=== PATIENT | male | born 1970 | race Caucasian/White ===

== ENCOUNTER 2016-10-31 12:43 | Inpatient (IN) | payer MEDICARE, MEDICAID ==
[~2016-10-31] VITALS: Ht 177.8 cm; Wt 55.6 kg
[~2016-10-31 12:43] MED LIST: DIVA500T52 PO; HALO2 PO
[2016-10-31 17:50] VITALS: BP 107/70
[2016-10-31] MEDS ORDERED: INFLUENZA VIRUS VACCINE QVS 2016-17 (3YR+)/PF 60 MCG/0.5 ML SYRINGE IM ONE (18:15)
[2016-10-31] MEDS: DIVALPROEX SODIUM 500 MG ER TABLET PO SCH (20:04)
[2016-10-31] MEDS: QUEtiapine FUMARATE 200 MG TABLET PO SCH (20:04)
[2016-10-31] MEDS: ZOLPIDEM TARTRATE 10 MG TABLET PO PRN (20:04)
[2016-11-01 06:26] VITALS: BP 117/71
[2016-11-01 08:07] VITALS: BP 119/81
[2016-11-01] MEDS: SULFAMETHOX/TRIMETH DS 800-160 MG/TABLET PO SCH ×2 (08:13→16:31)
[2016-11-01] MEDS: OLANZapine 5 MG RAPDIS TABLET PO SCH (08:14)
[2016-11-01] MEDS: CEPHALEXIN MONOHYDRATE 500 MG CAPSULE PO SCH ×3 (08:16→16:31)
[2016-11-01 08:36] LABS: BASOPHILS # (AUTO) 0.05 K/uL (0.00-0.20); BASOPHILS % (AUTO) 0.5 % (0.0-2.0); EOSINOPHILS # (AUTO) 0.18 K/uL (0.00-0.70); EOSINOPHILS % (AUTO) 1.89 % (1.0-6.0); HEMATOCRIT 38.9 % (41-53); HEMOGLOBIN 12.4 g/dL (13.5-17.5); LYMPHOCYTES # (AUTO) 2.1 K/uL (1.0-4.8); LYMPHOCYTES % (AUTO) 22.5 % (22.0-44.0); MEAN CORPUSCULAR HEMOGLOBIN 26.3 pg (26.0-34.0); MEAN CORPUSCULAR HGB CONC 31.8 G/dL (31.0-37.0); MEAN CORPUSCULAR VOLUME 83 fL (80-100); MONOCYTES # (AUTO) 0.6 K/uL (0.1-1.0); MONOCYTES % (AUTO) 6.1 % (2.0-9.0); NEUTROPHILS # (AUTO) 6.4 K/uL (1.8-7.7); NEUTROPHILS % (AUTO) 69.1 % (40.0-70.0); PLATELET COUNT (AUTO) 292 K/uL (150-450); WHITE BLOOD COUNT (AUTO) 9.3 K/uL (4.5-11.0)
[2016-11-01 09:20] LABS: HEMOGLOBIN A1C 5.4 % (4.5-6.2)
[2016-11-01 09:38] LABS: ALANINE AMINOTRANSFERASE 18 U/L (12-78); ALBUMIN 2.8 g/dL (3.4-5.0); ANION GAP 9 mmol/L (8-16); ASPARTATE AMINOTRANSFERASE 23 U/L (15-37); BILIRUBIN,TOTAL 0.2 mg/dL (0.1-1.0); CALCIUM, TOTAL 8.5 mg/dL (8.8-10.5); CARBON DIOXIDE 29 mmol/L (22-29); CHLORIDE 103 mmol/L (98-107); CHOL/HDL RATIO 2.4 (4.2-7.3); CREATININE 0.87 mg/dL (0.60-1.30); GLOMERULAR FILTR. RATE CALC > 60 mL/min (>60); POTASSIUM 3.9 mmol/L (3.5-5.1); SODIUM SERUM 141 mmol/L (136-145); THYROID STIMULATING HORMONE 0.93 uIU/mL (0.36-3.74); TOTAL PROTEIN, SERUM 7.6 g/dL (6.4-8.2); UREA NITROGEN, BLOOD 18 mg/dL (7-18)
[2016-11-01] MEDS: LORazepam 2 MG TABLET PO PRN (11:12)
[2016-11-01] MEDS: QUEtiapine FUMARATE 100 MG TABLET PO PRN (16:31)
[2016-11-01 16:46] VITALS: BP 117/71
[2016-11-01] MEDS: DIVALPROEX SODIUM 500 MG ER TABLET PO SCH (20:24)
[2016-11-01] MEDS: QUEtiapine FUMARATE 200 MG TABLET PO SCH (20:24)
[2016-11-01 21:00] VITALS: BP 103/76
[2016-11-02 09:15] VITALS: BP 106/67
[2016-11-02] MEDS: OLANZapine 5 MG RAPDIS TABLET PO SCH (09:58)
[2016-11-02] MEDS: CEPHALEXIN MONOHYDRATE 500 MG CAPSULE PO SCH ×3 (09:58→17:00)
[2016-11-02] MEDS: SULFAMETHOX/TRIMETH DS 800-160 MG/TABLET PO SCH ×2 (09:58→17:00)
[2016-11-02 16:47] VITALS: BP 113/71
[2016-11-02] MEDS: LORazepam 2 MG TABLET PO PRN (18:08)
[2016-11-02] MEDS: DIVALPROEX SODIUM 500 MG ER TABLET PO SCH (22:13)
[2016-11-02] MEDS: ZOLPIDEM TARTRATE 10 MG TABLET PO PRN (22:13)
[2016-11-02] MEDS: QUEtiapine FUMARATE 200 MG TABLET PO SCH (22:14)
[2016-11-03 08:00] VITALS: BP 109/84
[2016-11-03] MEDS: LORazepam 2 MG TABLET PO PRN ×3 (08:17→17:25)
[2016-11-03] MEDS: SULFAMETHOX/TRIMETH DS 800-160 MG/TABLET PO SCH ×2 (08:17→17:13)
[2016-11-03] MEDS: CEPHALEXIN MONOHYDRATE 500 MG CAPSULE PO SCH ×3 (08:17→17:13)
[2016-11-03] MEDS: OLANZapine 5 MG RAPDIS TABLET PO SCH (08:18)
[2016-11-03 16:00] VITALS: BP 118/65
[2016-11-03] MEDS: QUEtiapine FUMARATE 200 MG TABLET PO SCH (21:36)
[2016-11-03] MEDS: DIVALPROEX SODIUM 500 MG ER TABLET PO SCH (21:36)
[2016-11-04 08:03] VITALS: BP 124/74
[2016-11-04] MEDS: SULFAMETHOX/TRIMETH DS 800-160 MG/TABLET PO SCH ×2 (09:01→18:07)
[2016-11-04] MEDS: OLANZapine 5 MG RAPDIS TABLET PO SCH (09:01)
[2016-11-04] MEDS: CEPHALEXIN MONOHYDRATE 500 MG CAPSULE PO SCH ×3 (09:01→18:07)
[2016-11-04] MEDS: LORazepam 2 MG TABLET PO PRN ×2 (12:36→18:07)
[2016-11-04] MEDS: QUEtiapine FUMARATE 100 MG TABLET PO PRN (18:07)
[2016-11-04 19:44] VITALS: BP 128/86
[2016-11-04] MEDS: QUEtiapine FUMARATE 200 MG TABLET PO SCH (21:02)
[2016-11-04] MEDS: DIVALPROEX SODIUM 500 MG ER TABLET PO SCH (21:02)
[2016-11-05 08:10] VITALS: BP 121/76
[2016-11-05] MEDS: CEPHALEXIN MONOHYDRATE 500 MG CAPSULE PO SCH ×3 (08:48→16:20)
[2016-11-05] MEDS: SULFAMETHOX/TRIMETH DS 800-160 MG/TABLET PO SCH ×2 (08:48→16:19)
[2016-11-05] MEDS: OLANZapine 5 MG RAPDIS TABLET PO SCH (08:48)
[2016-11-05] MEDS: LORazepam 2 MG TABLET PO PRN (10:16)
[2016-11-05 17:16] VITALS: BP 111/74
[2016-11-05] MEDS: QUEtiapine FUMARATE 200 MG TABLET PO SCH (20:17)
[2016-11-05] MEDS: DIVALPROEX SODIUM 500 MG ER TABLET PO SCH (20:17)
[2016-11-05] MEDS: ZOLPIDEM TARTRATE 10 MG TABLET PO PRN (21:14)
[2016-11-06] MEDS: LORazepam 2 MG TABLET PO PRN (01:24)
[2016-11-06] MEDS: OLANZapine 5 MG RAPDIS TABLET PO SCH (08:01)
[2016-11-06] MEDS: CEPHALEXIN MONOHYDRATE 500 MG CAPSULE PO SCH ×2 (08:01→12:10)
[2016-11-06] MEDS: SULFAMETHOX/TRIMETH DS 800-160 MG/TABLET PO SCH (08:01)
[2016-11-06 08:07] VITALS: BP 127/70
[2016-11-06 12:23] LABS: BASOPHILS # (AUTO) 0.04 K/uL (0.00-0.20); BASOPHILS % (AUTO) 0.6 % (0.0-2.0); EOSINOPHILS # (AUTO) 0.12 K/uL (0.00-0.70); EOSINOPHILS % (AUTO) 1.98 % (1.0-6.0); HEMATOCRIT 39.1 % (41-53); HEMOGLOBIN 12.6 g/dL (13.5-17.5); LYMPHOCYTES % (AUTO) 33.9 % (22.0-44.0); MEAN CORPUSCULAR HEMOGLOBIN 26.6 pg (26.0-34.0); MEAN CORPUSCULAR HGB CONC 32.3 G/dL (31.0-37.0); MEAN CORPUSCULAR VOLUME 82 fL (80-100); MONOCYTES # (AUTO) 0.3 K/uL (0.1-1.0); MONOCYTES % (AUTO) 5.6 % (2.0-9.0); NEUTROPHILS # (AUTO) 3.4 K/uL (1.8-7.7); NEUTROPHILS % (AUTO) 57.9 % (40.0-70.0); PLATELET COUNT (AUTO) 305 K/uL (150-450); RED BLOOD CELL COUNT(AUTO) 4.76 MIL/uL (4.50-5.90); WHITE BLOOD COUNT (AUTO) 5.9 K/uL (4.5-11.0)
[2016-11-06] MEDS ORDERED: CEPH500 PO (12:28)
[2016-11-06] MEDS ORDERED: QUET200T PO (12:28)
[2016-11-06] MEDS ORDERED: BACTDSB PO (12:28)
[2016-11-06] MEDS ORDERED: OLAN5Z PO (12:28)
[2016-11-06 12:41] LABS: AMYLASE 45 U/L (25-115); VALPROIC ACID 22 mcg/mL (50-100)
== END 2016-11-06 14:15 | disposition home or self-care (01) | DRG 885 ==
LOC: B3A 17:18 → 3EC 11-01 20:30
PROVIDERS: ADMIT Psychiatry & Neurology Psychiatry; ATTEND Psychiatry & Neurology Psychiatry
DX: F20.0 Paranoid schizophrenia (principal); R45.851 Suicidal ideations; L03.116 Cellulitis of left lower limb; F32.9 Major depressive disorder, single episode, unspecified; D64.9 Anemia, unspecified; J30.9 Allergic rhinitis, unspecified; I10 Essential (primary) hypertension; B95.62 Methicillin resistant Staphylococcus aureus infection as the cause of diseases classified elsewhere; L65.9 Nonscarring hair loss, unspecified; F17.210 Nicotine dependence, cigarettes, uncomplicated; F12.90 Cannabis use, unspecified, uncomplicated; K59.00 Constipation, unspecified; N40.0 Benign prostatic hyperplasia without lower urinary tract symptoms; Z59.9 Problem related to housing and economic circumstances, unspecified; Z79.899 Other long term (current) drug therapy; Z88.8 Allergy status to other drugs, medicaments and biological substances; Z91.19 Patient's noncompliance with other medical treatment and regimen; Z72.89 Other problems related to lifestyle; Z81.8 Family history of other mental and behavioral disorders
CPT/HCPCS: 83036; 84439; 84443; 87070; 87081; 87147; 87205

== ENCOUNTER 2016-11-13 10:22 | Inpatient (IN) | payer MEDICARE, MEDICAID ==
[~2016-11-13] VITALS: Ht 177.8 cm; Wt 59.7 kg
[~2016-11-13 10:22] MED LIST changes: +BACTDSB PO; +CEPH500 PO; -HALO2 PO; +OLAN5Z PO; +QUET200T PO
[2016-11-13] MEDS ORDERED: ZOLPIDEM TARTRATE 10 MG TABLET PO PRN (13:30)
[2016-11-13] MEDS ORDERED: QUEtiapine FUMARATE 100 MG TABLET PO PRN (13:30)
[2016-11-13] MEDS ORDERED: DiphenhydrAMINE HCL 50 MG/ML VIAL IM ONE (16:15)
[2016-11-13] MEDS ORDERED: LORazepam 2 MG/ML VIAL IM ONE (16:15)
[2016-11-13 16:53] VITALS: BP 113/68
[2016-11-13] MEDS: QUEtiapine FUMARATE 200 MG TABLET PO SCH (20:56)
[2016-11-13] MEDS: DIVALPROEX SODIUM 500 MG ER TABLET PO SCH (20:56)
[2016-11-14 06:43] LABS: BASOPHILS % (AUTO) 0.6 % (0.0-2.0); HEMOGLOBIN 13.7 g/dL (13.5-17.5); LYMPHOCYTES # (AUTO) 2.9 K/uL (1.0-4.8); LYMPHOCYTES % (AUTO) 30.5 % (22.0-44.0); MEAN CORPUSCULAR HEMOGLOBIN 26.1 pg (26.0-34.0); MEAN CORPUSCULAR HGB CONC 31.2 G/dL (31.0-37.0); MEAN CORPUSCULAR VOLUME 84 fL (80-100); MONOCYTES # (AUTO) 0.6 K/uL (0.1-1.0); MONOCYTES % (AUTO) 6.9 % (2.0-9.0); NEUTROPHILS # (AUTO) 5.7 K/uL (1.8-7.7); PLATELET COUNT (AUTO) 283 K/uL (150-450); RED BLOOD CELL COUNT(AUTO) 5.26 MIL/uL (4.50-5.90); RED CELL DISTRIBUTION WIDTH 15.9 % (11.5-14.5); WHITE BLOOD COUNT (AUTO) 9.4 K/uL (4.5-11.0)
[2016-11-14 06:57] LABS: ALANINE AMINOTRANSFERASE 35 U/L (12-78); ALBUMIN 3.3 g/dL (3.4-5.0); ANION GAP 9 mmol/L (8-16); ASPARTATE AMINOTRANSFERASE 94 U/L (15-37); BILIRUBIN,TOTAL 0.4 mg/dL (0.1-1.0); CALCIUM, TOTAL 8.7 mg/dL (8.8-10.5); CARBON DIOXIDE 28 mmol/L (22-29); CHLORIDE 105 mmol/L (98-107); CREATININE 0.86 mg/dL (0.60-1.30); GLOMERULAR FILTR. RATE CALC > 60 mL/min (>60); SODIUM SERUM 142 mmol/L (136-145); TOTAL PROTEIN, SERUM 7.5 g/dL (6.4-8.2); UREA NITROGEN, BLOOD 15 mg/dL (7-18)
[2016-11-14] MEDS: OLANZapine 5 MG RAPDIS TABLET PO SCH (08:59)
[2016-11-14] MEDS: LORazepam 2 MG TABLET PO PRN ×2 (11:12→16:11)
[2016-11-14 16:15] VITALS: BP 127/74
[2016-11-14] MEDS: DIVALPROEX SODIUM 500 MG ER TABLET PO SCH (20:27)
[2016-11-14] MEDS: QUEtiapine FUMARATE 200 MG TABLET PO SCH (20:28)
[2016-11-15] MEDS: OLANZapine 5 MG RAPDIS TABLET PO SCH (08:32)
[2016-11-15] MEDS: PALIPERIDONE 6 MG ER TABLET PO SCH (08:32)
[2016-11-15] MEDS: LORazepam 2 MG TABLET PO PRN ×2 (13:37→19:30)
[2016-11-15 17:03] VITALS: BP 122/82
[2016-11-15] MEDS: DIVALPROEX SODIUM 500 MG ER TABLET PO SCH (20:24)
[2016-11-16] MEDS: PALIPERIDONE 6 MG ER TABLET PO SCH (08:48)
[2016-11-16] MEDS: OLANZapine 5 MG RAPDIS TABLET PO SCH (08:49)
[2016-11-16 08:52] VITALS: BP 110/86
[2016-11-16] MEDS ORDERED: BISACODYL 5 MG EC TABLET PO PRN (09:00)
[2016-11-16] MEDS: LORazepam 2 MG TABLET PO PRN ×2 (15:53→22:02)
[2016-11-16 16:00] VITALS: BP 107/75
[2016-11-16] MEDS: DIVALPROEX SODIUM 500 MG ER TABLET PO SCH (20:28)
[2016-11-17 08:27] VITALS: BP 119/74
[2016-11-17] MEDS: PALIPERIDONE 6 MG ER TABLET PO SCH (09:04)
[2016-11-17] MEDS: OLANZapine 5 MG RAPDIS TABLET PO SCH (09:04)
[2016-11-17] MEDS: LORazepam 2 MG TABLET PO PRN (15:52)
[2016-11-17 16:00] VITALS: BP 126/70
[2016-11-17] MEDS: DIVALPROEX SODIUM 500 MG ER TABLET PO SCH (20:30)
[2016-11-18 08:38] VITALS: BP 112/59
[2016-11-18] MEDS: OLANZapine 5 MG RAPDIS TABLET PO SCH (08:51)
[2016-11-18] MEDS: PALIPERIDONE 6 MG ER TABLET PO SCH (08:51)
[2016-11-18] MEDS ORDERED: PALI3 PO (11:43)
[2016-11-20] MEDS ORDERED: PALIPERIDONE 3 MG ER TABLET PO SCH (09:00)
== END 2016-11-18 13:40 | disposition left against medical advice (07) | DRG 885 ==
LOC: 3EC 16:14
PROVIDERS: ADMIT Psychiatry & Neurology Psychiatry; ATTEND Psychiatry & Neurology Psychiatry
DX: F20.0 Paranoid schizophrenia (principal); R45.851 Suicidal ideations; E46 Unspecified protein-calorie malnutrition; H54.41 Blindness, right eye, normal vision left eye; N40.0 Benign prostatic hyperplasia without lower urinary tract symptoms; R45.850 Homicidal ideations; J30.9 Allergic rhinitis, unspecified; D64.9 Anemia, unspecified; K59.00 Constipation, unspecified; G47.00 Insomnia, unspecified; F15.90 Other stimulant use, unspecified, uncomplicated; F12.90 Cannabis use, unspecified, uncomplicated; F14.90 Cocaine use, unspecified, uncomplicated; F17.200 Nicotine dependence, unspecified, uncomplicated; Z98.890 Other specified postprocedural states; Z88.8 Allergy status to other drugs, medicaments and biological substances; Z91.14 Patient's other noncompliance with medication regimen; Z87.81 Personal history of (healed) traumatic fracture; Z81.8 Family history of other mental and behavioral disorders
CPT/HCPCS: 87081; J1200; J2060; J3230

== ENCOUNTER 2017-06-30 16:21 | Inpatient (IN) | payer MEDICARE, MEDICAID ==
[~2017-06-30] VITALS: Ht 177.8 cm; Wt 64.7 kg
[~2017-06-30 16:21] MED LIST changes: -BACTDSB PO; -CEPH500 PO; -OLAN5Z PO; +PALI3 PO; -QUET200T PO
[2017-06-30 17:42] VITALS: BP 113/83
[2017-06-30] MEDS ORDERED: INFLUENZA VIRUS VACCINE QVS 2017-18 (3YR+)/PF 60 MCG/0.5 ML SYRINGE IM ONE (19:15)
[2017-06-30] MEDS: LORazepam 2 MG TABLET PO PRN (20:47)
[2017-06-30] MEDS: DIVALPROEX SODIUM 500 MG ER TABLET PO SCH (20:47)
[2017-07-01 06:31] VITALS: BP 106/69
[2017-07-01 08:12] VITALS: BP 101/68
[2017-07-01 08:16] LABS: BASOPHILS % (AUTO) 0.7 % (0.0-2.0); EOSINOPHILS % (AUTO) 1.7 % (1.0-6.0); HEMATOCRIT 46.1 % (41-53); HEMOGLOBIN 15.3 g/dL (13.5-17.5); LYMPHOCYTES # (AUTO) 2.5 K/uL (1.0-4.8); LYMPHOCYTES % (AUTO) 38.6 % (22.0-44.0); MEAN CORPUSCULAR HEMOGLOBIN 28.6 pg (26.0-34.0); MEAN CORPUSCULAR HGB CONC 33.1 G/dL (31.0-37.0); MEAN CORPUSCULAR VOLUME 86 fL (80-100); MONOCYTES # (AUTO) 0.5 K/uL (0.1-1.0); MONOCYTES % (AUTO) 8.5 % (2.0-9.0); NEUTROPHILS # (AUTO) 3.2 K/uL (1.8-7.7); NEUTROPHILS % (AUTO) 50.5 % (40.0-70.0); PLATELET COUNT (AUTO) 270 K/uL (150-450); RED BLOOD CELL COUNT(AUTO) 5.35 MIL/uL (4.50-5.90); WHITE BLOOD COUNT (AUTO) 6.4 K/uL (4.5-11.0)
[2017-07-01 08:47] LABS: ALANINE AMINOTRANSFERASE 19 U/L (12-78); ALBUMIN 3.9 g/dL (3.4-5.0); ASPARTATE AMINOTRANSFERASE 13 U/L (15-37); BILIRUBIN,TOTAL 0.2 mg/dL (0.1-1.0); CALCIUM, TOTAL 8.7 mg/dL (8.8-10.5); CARBON DIOXIDE 29 mmol/L (22-29); CHOL/HDL RATIO 3.6 (4.2-7.3); CREATININE 0.78 mg/dL (0.60-1.30); GLOMERULAR FILTR. RATE CALC > 60 mL/min (>60); THYROID STIMULATING HORMONE 0.82 uIU/mL (0.36-3.74); TOTAL PROTEIN, SERUM 6.8 g/dL (6.4-8.2); UREA NITROGEN, BLOOD 14 mg/dL (7-18)
[2017-07-01] MEDS: QUEtiapine FUMARATE 100 MG TABLET PO PRN (08:56)
[2017-07-01] MEDS: PALIPERIDONE 3 MG ER TABLET PO SCH (08:56)
[2017-07-01] MEDS: NICOTINE 21 MG/24 HOUR PATCH TD SCH (08:57)
[2017-07-01] MEDS: LORazepam 2 MG TABLET PO PRN ×2 (08:57→20:19)
[2017-07-01 11:13] LABS: ANION GAP 7 mmol/L (8-16); CHLORIDE 104 mmol/L (98-107); POTASSIUM 4.2 mmol/L (3.5-5.1); SODIUM SERUM 140 mmol/L (136-145)
[2017-07-01 11:16] LABS: HEMOGLOBIN A1C 5.4 % (4.5-6.2)
[2017-07-01 16:00] VITALS: BP 104/73
[2017-07-01] MEDS: DIVALPROEX SODIUM 500 MG ER TABLET PO SCH (20:19)
[2017-07-02 06:27] VITALS: BP 109/63
[2017-07-02 07:05] LABS: HEPATITIS Bs ANTIGEN SCREEN P Negative (Negative); HEPATITIS C AB SCREEN <0.1 s/co ratio (0.0-0.9)
[2017-07-02 08:03] VITALS: BP 100/62
[2017-07-02] MEDS: PALIPERIDONE 3 MG ER TABLET PO SCH (08:59)
[2017-07-02] MEDS: NICOTINE 21 MG/24 HOUR PATCH TD SCH (08:59)
[2017-07-02] MEDS: QUEtiapine FUMARATE 100 MG TABLET PO PRN ×2 (11:11→20:41)
[2017-07-02] MEDS: LORazepam 2 MG TABLET PO PRN (11:11)
[2017-07-02 16:07] VITALS: BP 117/76
[2017-07-02] MEDS: DIVALPROEX SODIUM 500 MG ER TABLET PO SCH (20:41)
[2017-07-03 08:30] VITALS: BP 104/67
[2017-07-03] MEDS: LORazepam 2 MG TABLET PO PRN ×3 (08:53→20:38)
[2017-07-03] MEDS: PALIPERIDONE 3 MG ER TABLET PO SCH (08:53)
[2017-07-03] MEDS: NICOTINE 21 MG/24 HOUR PATCH TD SCH (08:54)
[2017-07-03 16:00] VITALS: BP 112/80
[2017-07-03] MEDS: QUEtiapine FUMARATE 100 MG TABLET PO PRN (16:37)
[2017-07-03] MEDS: DIVALPROEX SODIUM 500 MG ER TABLET PO SCH (20:38)
[2017-07-03] MEDS: ZOLPIDEM TARTRATE 10 MG TABLET PO PRN (20:38)
[2017-07-04 03:12] VITALS: BP 109/72
[2017-07-04 08:00] VITALS: BP 114/67
[2017-07-04] MEDS: LORazepam 2 MG TABLET PO PRN ×2 (08:27→20:27)
[2017-07-04] MEDS: PALIPERIDONE 3 MG ER TABLET PO SCH (08:27)
[2017-07-04] MEDS: NICOTINE 21 MG/24 HOUR PATCH TD SCH (08:27)
[2017-07-04 16:00] VITALS: BP 117/66
[2017-07-04] MEDS: DIVALPROEX SODIUM 500 MG ER TABLET PO SCH (20:27)
[2017-07-05 04:30] VITALS: BP 109/64
[2017-07-05] MEDS: PALIPERIDONE 6 MG ER TABLET PO SCH (08:27)
[2017-07-05] MEDS: NICOTINE 21 MG/24 HOUR PATCH TD SCH (08:28)
[2017-07-05 08:29] VITALS: BP 105/63
[2017-07-05 16:00] VITALS: BP 108/66
[2017-07-05] MEDS: LORazepam 2 MG TABLET PO PRN (20:29)
[2017-07-05] MEDS: DIVALPROEX SODIUM 500 MG ER TABLET PO SCH (20:29)
[2017-07-06 06:30] VITALS: BP 118/62
[2017-07-06 08:04] VITALS: BP 101/59
[2017-07-06] MEDS: LORazepam 2 MG TABLET PO PRN ×2 (09:00→16:09)
[2017-07-06] MEDS: PALIPERIDONE 6 MG ER TABLET PO SCH (09:00)
[2017-07-06] MEDS: NICOTINE 21 MG/24 HOUR PATCH TD SCH (09:00)
[2017-07-06] MEDS: QUEtiapine FUMARATE 100 MG TABLET PO PRN (16:09)
[2017-07-06 16:11] VITALS: BP 112/65
[2017-07-06] MEDS: ZOLPIDEM TARTRATE 10 MG TABLET PO PRN (20:10)
[2017-07-06] MEDS: DIVALPROEX SODIUM 500 MG ER TABLET PO SCH (20:10)
[2017-07-07 06:37] VITALS: BP 100/60
[2017-07-07 08:20] VITALS: BP 114/75
[2017-07-07] MEDS: LORazepam 2 MG TABLET PO PRN ×2 (08:43→20:30)
[2017-07-07] MEDS: PALIPERIDONE 6 MG ER TABLET PO SCH (08:43)
[2017-07-07] MEDS: NICOTINE 21 MG/24 HOUR PATCH TD SCH (08:44)
[2017-07-07] MEDS ORDERED: BISMUTH SUBSALICYLATE 262 MG CHEWABLE TABLET CHEW PRN (10:00)
[2017-07-07 16:00] VITALS: BP 108/71
[2017-07-07] MEDS: DIVALPROEX SODIUM 500 MG ER TABLET PO SCH (20:30)
[2017-07-08 06:43] VITALS: BP 108/69
[2017-07-08 08:13] VITALS: BP 113/64
[2017-07-08] MEDS: NICOTINE 21 MG/24 HOUR PATCH TD SCH (08:51)
[2017-07-08] MEDS: PALIPERIDONE 6 MG ER TABLET PO SCH (08:52)
== END 2017-07-08 13:45 | DRG 885 ==
LOC: B3A 17:21
PROVIDERS: ADMIT Psychiatry & Neurology Psychiatry; ATTEND Psychiatry & Neurology Psychiatry
DX: F20.0 Paranoid schizophrenia (principal); R45.851 Suicidal ideations; Z91.14 Patient's other noncompliance with medication regimen; E78.5 Hyperlipidemia, unspecified; I10 Essential (primary) hypertension; K59.00 Constipation, unspecified; K21.9 Gastro-esophageal reflux disease without esophagitis; D64.9 Anemia, unspecified; N40.0 Benign prostatic hyperplasia without lower urinary tract symptoms; J30.9 Allergic rhinitis, unspecified; T43.95XA Adverse effect of unspecified psychotropic drug, initial encounter; K29.70 Gastritis, unspecified, without bleeding; H50.9 Unspecified strabismus; J44.9 Chronic obstructive pulmonary disease, unspecified; F17.200 Nicotine dependence, unspecified, uncomplicated; L30.9 Dermatitis, unspecified; Y93.89 Activity, other specified; Y92.89 Other specified places as the place of occurrence of the external cause; Y99.8 Other external cause status
CPT/HCPCS: 80074; 83036; 84439; 84443

== ENCOUNTER 2017-12-27 21:24 | Emergency (ER) | payer MEDICARE, MEDICAID ==
[~2017-12-27] VITALS: Ht 177.8 cm; Wt 68.2 kg
[2017-12-27 22:00] LABS: BASOPHILS % (AUTO) 0.9 % (0.0-2.0); EOSINOPHILS % (AUTO) 0.7 % (1.0-6.0); HEMATOCRIT 43.4 % (41-53); HEMOGLOBIN 14.5 g/dL (13.5-17.5); LYMPHOCYTES # (AUTO) 2.4 K/uL (1.0-4.8); LYMPHOCYTES % (AUTO) 27.2 % (22.0-44.0); MEAN CORPUSCULAR HEMOGLOBIN 27.7 pg (26.0-34.0); MEAN CORPUSCULAR HGB CONC 33.3 G/dL (31.0-37.0); MEAN CORPUSCULAR VOLUME 83 fL (80-100); MONOCYTES # (AUTO) 0.8 K/uL (0.1-1.0); MONOCYTES % (AUTO) 9.3 % (2.0-9.0); NEUTROPHILS # (AUTO) 5.4 K/uL (1.8-7.7); NEUTROPHILS % (AUTO) 61.9 % (40.0-70.0); PLATELET COUNT (AUTO) 329 K/uL (150-450); RED BLOOD CELL COUNT(AUTO) 5.21 MIL/uL (4.50-5.90)
[2017-12-27 22:14] LABS: ANION GAP 7 mmol/L (8-16); CALCIUM, TOTAL 9.2 mg/dL (8.8-10.5); CARBON DIOXIDE 29 mmol/L (22-29); CHLORIDE 101 mmol/L (98-107); CREATININE 0.77 mg/dL (0.60-1.30); GLOMERULAR FILTR. RATE CALC > 60 mL/min (>60); GLUCOSE,RANDOM 78 mg/dL (70-110); POTASSIUM 4.1 mmol/L (3.5-5.1); SODIUM SERUM 137 mmol/L (136-145); UREA NITROGEN, BLOOD 13 mg/dL (7-18)
[2017-12-27 22:20] LABS: ALANINE AMINOTRANSFERASE 89 U/L (12-78); ALBUMIN 3.8 g/dL (3.4-5.0); ALKALINE PHOSPHATASE 65 U/L (46-116); ASPARTATE AMINOTRANSFERASE 129 U/L (15-37); BILIRUBIN,TOTAL 0.7 mg/dL (0.1-1.0); TOTAL PROTEIN, SERUM 7.2 g/dL (6.4-8.2)
[2017-12-28] MEDS ORDERED: LORazepam 2 MG TABLET PO ONE (00:45)
[2017-12-28 03:13] VITALS: BP 122/80
== END 2017-12-28 03:22 | disposition home or self-care (01) ==
LOC: EMS 21:26
DX: F20.0 Paranoid schizophrenia (principal); F17.210 Nicotine dependence, cigarettes, uncomplicated; Z59.0 Homelessness; R79.89 Other specified abnormal findings of blood chemistry
CPT/HCPCS: 36415; 80053; 85025; 99284; 99406; G0480

== ENCOUNTER 2017-12-28 14:53 | Inpatient (IN) | payer MEDICARE, MEDICAID ==
[~2017-12-28] VITALS: Ht 177.8 cm; Wt 54.2 kg
[2017-12-28] MEDS ORDERED: ZOLPIDEM TARTRATE 10 MG TABLET PO PRN (20:00)
[2017-12-28] MEDS ORDERED: LORazepam 2 MG TABLET PO PRN (20:00)
[2017-12-28] MEDS ORDERED: HALOPERIDOL 5 MG TABLET PO PRN (20:00)
[2017-12-28] MEDS ORDERED: INFLUENZA VIRUS VACCINE QVS 2017-18 (3YR+)/PF 60 MCG/0.5 ML SYRINGE IM ONE (20:45)
[2017-12-28] MEDS ORDERED: PNEUMOCOCCAL VACCINE POLYVALENT 0.5 ML VIAL [PPSV23] IM ONE (20:45)
[2017-12-28 21:29] VITALS: BP 125/72
[2017-12-28] MEDS: DIVALPROEX SODIUM 500 MG ER TABLET PO SCH (21:45)
[2017-12-29 02:06] LABS: APPEARANCE,URINE CLEAR (CLEAR); GLUCOSE, URINE (UA) NEGATIVE (NEGATIVE); KETONES,URINE NEGATIVE (NEGATIVE); LEUKOCYTE ESTERASE ,URINE NEGATIVE (NEGATIVE); NITRATE,URINE NEGATIVE (NEGATIVE); OCCULT BLOOD,URINE NEGATIVE (NEGATIVE); PH,URINE 6.5 (5.0-8.0); PROTEIN,URINE NEGATIVE (NEGATIVE)
[2017-12-29 02:07] LABS: BILIRUBIN,URINE PRELIM. POSITIVE (NEGATIVE)
[2017-12-29 02:10] LABS: AMPHET/METH SCREEN,URINE NEGATIVE (NEGATIVE); BARBITURATE SCREEN, URINE NEGATIVE (NEGATIVE); BENZODIAZEPINES SCREEN,URINE NEGATIVE (NEGATIVE); CANNABINOID SCREEN,URINE NEGATIVE (NEGATIVE); COCAINE SCREEN,URINE NEGATIVE (NEGATIVE); METHADONE SCREEN, URINE NEGATIVE (NEGATIVE); OPIATE SCREEN,URINE NEGATIVE (NEGATIVE); PHENCYCLIDINE SCREEN,URINE NEGATIVE (NEGATIVE)
[2017-12-29 02:52] LABS: RBC,URINE 0-2 /HPF (0-2)
[2017-12-29 02:53] LABS: BACTERIA,URINE Few /HPF (None Seen); CALCIUM OXALATE CRYSTALS,UR Moderate /LPF (None Seen); WBC,URINE 0-2 /HPF (0-5)
[2017-12-29 04:15] VITALS: BP 110/70
[2017-12-29] MEDS ORDERED: ALBUTEROL SULFATE HFA 90 MCG/PUFF 8 GM INHALER IH PRN (07:30)
[2017-12-29] MEDS ORDERED: IBUPROFEN 600 MG TABLET PO PRN (07:30)
[2017-12-29] MEDS ORDERED: ONDANSETRON HCL 4 MG TABLET PO PRN (07:30)
[2017-12-29] MEDS ORDERED: LOPERAMIDE HCL 2 MG CAPSULE PO PRN (07:30)
[2017-12-29] MEDS ORDERED: BACITRACIN 28.4 GM OINTMENT TP PRN (07:30)
[2017-12-29] MEDS ORDERED: MAG HYDROX/AL HYDROX/SIMETH ES 30 ML SUSPENSION UDCUP PO PRN (07:30)
[2017-12-29] MEDS ORDERED: PETROLATUM,WHITE 71 GM JELLY TP PRN (07:30)
[2017-12-29] MEDS ORDERED: MAGNESIUM HYDROXIDE SUSPENSION 30 ML UDCUP PO PRN (07:30)
[2017-12-29] MEDS ORDERED: ACETAMINOPHEN 325 MG TABLET PO PRN (07:30)
[2017-12-29] MEDS ORDERED: CloNIDine HCL 0.1 MG TABLET PO PRN (07:30)
[2017-12-29] MEDS ORDERED: BENZOCAINE/MENTHOL LOZENGE [8 LOZENGES/PACKET] MM PRN (07:45)
[2017-12-29] MEDS: MULTIVITAMINS WITH MINERALS, THERAPEUTIC TABLET PO SCH (08:50)
[2017-12-29] MEDS ORDERED: PALIPERIDONE 6 MG ER TABLET PO SCH (09:00)
[2017-12-29 10:00] VITALS: BP 116/71
[2017-12-29 16:56] VITALS: BP 98/64
[2017-12-29] MEDS: DIVALPROEX SODIUM 500 MG ER TABLET PO SCH (20:04)
[2017-12-30] MEDS: ZIPRASIDONE HCL 40 MG CAPSULE PO SCH ×2 (07:14→16:57)
[2017-12-30] MEDS: MULTIVITAMINS WITH MINERALS, THERAPEUTIC TABLET PO SCH (08:23)
[2017-12-30 10:20] VITALS: BP 116/61
[2017-12-30] MEDS: DIVALPROEX SODIUM 500 MG ER TABLET PO SCH (20:41)
[2017-12-30 21:07] VITALS: BP 108/75
[2017-12-31] MEDS: ZIPRASIDONE HCL 60 MG CAPSULE PO SCH ×3 (07:15→16:45)
[2017-12-31 08:06] VITALS: BP 122/72
[2017-12-31] MEDS: MULTIVITAMINS WITH MINERALS, THERAPEUTIC TABLET PO SCH (10:23)
[2017-12-31 18:09] VITALS: BP 119/84
[2017-12-31] MEDS: DIVALPROEX SODIUM 500 MG ER TABLET PO SCH (20:17)
[2018-01-01 06:14] VITALS: BP 108/57
[2018-01-01] MEDS: MULTIVITAMINS WITH MINERALS, THERAPEUTIC TABLET PO SCH (08:41)
[2018-01-01 09:47] VITALS: BP 101/56
[2018-01-01 16:13] VITALS: BP 116/76
[2018-01-01] MEDS: ZIPRASIDONE HCL 80 MG CAPSULE PO SCH (17:04)
[2018-01-01] MEDS: DIVALPROEX SODIUM 500 MG ER TABLET PO SCH (20:28)
[2018-01-02 05:36] VITALS: BP 125/80
[2018-01-02] MEDS: MULTIVITAMINS WITH MINERALS, THERAPEUTIC TABLET PO SCH (08:52)
[2018-01-02 09:50] VITALS: BP 116/84
[2018-01-02 16:30] VITALS: BP 145/92
[2018-01-02] MEDS: ZIPRASIDONE HCL 80 MG CAPSULE PO SCH (16:47)
[2018-01-02] MEDS: DIVALPROEX SODIUM 500 MG ER TABLET PO SCH (20:15)
[2018-01-03 04:12] VITALS: BP 117/83
[2018-01-03] MEDS: MULTIVITAMINS WITH MINERALS, THERAPEUTIC TABLET PO SCH (08:19)
[2018-01-03 09:36] VITALS: BP 121/78
[2018-01-03] MEDS ORDERED: ZIPRASIDONE HCL 60 MG CAPSULE PO SCH (17:30)
[2018-01-03 18:53] VITALS: BP 132/71
[2018-01-03] MEDS: DIVALPROEX SODIUM 500 MG ER TABLET PO SCH (20:12)
[2018-01-04 06:21] LABS: BASOPHILS % (AUTO) 0.7 % (0.0-2.0); EOSINOPHILS % (AUTO) 2.1 % (1.0-6.0); HEMATOCRIT 45.4 % (41-53); HEMOGLOBIN 14.9 g/dL (13.5-17.5); LYMPHOCYTES # (AUTO) 2.9 K/uL (1.0-4.8); LYMPHOCYTES % (AUTO) 29.3 % (22.0-44.0); MEAN CORPUSCULAR HEMOGLOBIN 27.7 pg (26.0-34.0); MEAN CORPUSCULAR HGB CONC 32.9 G/dL (31.0-37.0); MEAN CORPUSCULAR VOLUME 84 fL (80-100); MONOCYTES % (AUTO) 9.7 % (2.0-9.0); NEUTROPHILS # (AUTO) 5.8 K/uL (1.8-7.7); NEUTROPHILS % (AUTO) 58.2 % (40.0-70.0); PLATELET COUNT (AUTO) 278 K/uL (150-450); RED BLOOD CELL COUNT(AUTO) 5.39 MIL/uL (4.50-5.90); RED CELL DISTRIBUTION WIDTH 14.7 % (11.5-14.5)
[2018-01-04 06:35] LABS: ALANINE AMINOTRANSFERASE 39 U/L (12-78); ALBUMIN 3.6 g/dL (3.4-5.0); ALKALINE PHOSPHATASE 81 U/L (46-116); ANION GAP 3 mmol/L (8-16); ASPARTATE AMINOTRANSFERASE 19 U/L (15-37); BILIRUBIN,TOTAL 0.2 mg/dL (0.1-1.0); CALCIUM, TOTAL 8.7 mg/dL (8.8-10.5); CARBON DIOXIDE 33 mmol/L (22-29); CHLORIDE 105 mmol/L (98-107); CREATININE 0.77 mg/dL (0.60-1.30); GLOMERULAR FILTR. RATE CALC > 60 mL/min (>60); GLUCOSE,RANDOM 91 mg/dL (70-110); POTASSIUM 4.3 mmol/L (3.5-5.1); SODIUM SERUM 141 mmol/L (136-145); TOTAL PROTEIN, SERUM 7.7 g/dL (6.4-8.2); UREA NITROGEN, BLOOD 14 mg/dL (7-18); VALPROIC ACID 75 mcg/mL (50-100)
[2018-01-04] MEDS: MULTIVITAMINS WITH MINERALS, THERAPEUTIC TABLET PO SCH (08:07)
[2018-01-04] MEDS ORDERED: ZIPR60CA2 PO (08:39)
[2018-01-04] MEDS ORDERED: MULT-1239 PO (08:40)
[2018-01-04 13:08] VITALS: BP 118/64
== END 2018-01-04 14:30 | disposition home or self-care (01) | DRG 885 ==
LOC: 3EX 19:53
PROVIDERS: ADMIT Psychiatry & Neurology Psychiatry; ATTEND Psychiatry & Neurology Psychiatry
DX: F20.0 Paranoid schizophrenia (principal); E44.0 Moderate protein-calorie malnutrition; R45.851 Suicidal ideations; Z91.14 Patient's other noncompliance with medication regimen; Z91.19 Patient's noncompliance with other medical treatment and regimen; Z68.1 Body mass index [BMI] 19.9 or less, adult; E55.9 Vitamin D deficiency, unspecified; F32.9 Major depressive disorder, single episode, unspecified; J30.9 Allergic rhinitis, unspecified; J44.9 Chronic obstructive pulmonary disease, unspecified; H53.009 Unspecified amblyopia, unspecified eye; K21.9 Gastro-esophageal reflux disease without esophagitis; K59.00 Constipation, unspecified; Z28.21 Immunization not carried out because of patient refusal; Z59.9 Problem related to housing and economic circumstances, unspecified; Z72.0 Tobacco use; Z71.6 Tobacco abuse counseling; Z72.89 Other problems related to lifestyle; Z71.41 Alcohol abuse counseling and surveillance of alcoholic
CPT/HCPCS: 80307

== ENCOUNTER 2018-03-14 02:30 | Emergency (ER) | payer MEDICARE, MEDICAID ==
[~2018-03-14] VITALS: Ht 177.8 cm; Wt 64.0 kg
[~2018-03-14 02:30] MED LIST changes: +MULT-1239 PO; -PALI3 PO; +ZIPR60CA2 PO
[2018-03-14] MEDS ORDERED: PALI9TAB IM (02:57)
[2018-03-14] MEDS ORDERED: LORA1TAB3 PO (02:57)
[2018-03-14 03:46] LABS: BASOPHILS % (AUTO) 0.9 % (0.0-2.0); HEMATOCRIT 37.3 % (41-53); HEMOGLOBIN 12.5 g/dL (13.5-17.5); LYMPHOCYTES # (AUTO) 2.2 K/uL (1.0-4.8); MEAN CORPUSCULAR HEMOGLOBIN 28.6 pg (26.0-34.0); MEAN CORPUSCULAR HGB CONC 33.5 G/dL (31.0-37.0); MEAN CORPUSCULAR VOLUME 85 fL (80-100); NEUTROPHILS # (AUTO) 7.6 K/uL (1.8-7.7); NEUTROPHILS % (AUTO) 68.1 % (40.0-70.0); PLATELET COUNT (AUTO) 270 K/uL (150-450); RED BLOOD CELL COUNT(AUTO) 4.37 MIL/uL (4.50-5.90); RED CELL DISTRIBUTION WIDTH 16.6 % (11.5-14.5)
[2018-03-14 03:49] LABS: ANION GAP 8 mmol/L (8-16); CALCIUM, TOTAL 8.3 mg/dL (8.8-10.5); CARBON DIOXIDE 28 mmol/L (22-29); CHLORIDE 102 mmol/L (98-107); CREATININE 0.75 mg/dL (0.60-1.30); GLOMERULAR FILTR. RATE CALC > 60 mL/min (>60); GLUCOSE,RANDOM 96 mg/dL (70-110); POTASSIUM 3.4 mmol/L (3.5-5.1); SODIUM SERUM 138 mmol/L (136-145); UREA NITROGEN, BLOOD 10 mg/dL (7-18)
[2018-03-14 03:56] LABS: ALANINE AMINOTRANSFERASE 57 U/L (12-78); ALBUMIN 3.5 g/dL (3.4-5.0); ALKALINE PHOSPHATASE 81 U/L (46-116); ASPARTATE AMINOTRANSFERASE 49 U/L (15-37); BILIRUBIN,TOTAL 0.4 mg/dL (0.1-1.0); TOTAL PROTEIN, SERUM 6.8 g/dL (6.4-8.2)
[2018-03-14] MEDS ORDERED: HALOPERIDOL 5 MG TABLET PO PRN (05:00)
[2018-03-14] MEDS ORDERED: ZOLPIDEM TARTRATE 10 MG TABLET PO PRN (05:00)
[2018-03-14] MEDS ORDERED: LORazepam 2 MG TABLET PO PRN (05:00)
[2018-03-14 08:06] VITALS: BP 127/71
[2018-03-14 08:53] LABS: AMPHET/METH SCREEN,URINE NEGATIVE (NEGATIVE); BARBITURATE SCREEN, URINE NEGATIVE (NEGATIVE); BENZODIAZEPINES SCREEN,URINE NEGATIVE (NEGATIVE); CANNABINOID SCREEN,URINE NEGATIVE (NEGATIVE); COCAINE SCREEN,URINE NEGATIVE (NEGATIVE); METHADONE SCREEN, URINE NEGATIVE (NEGATIVE); OPIATE SCREEN,URINE NEGATIVE (NEGATIVE); PHENCYCLIDINE SCREEN,URINE NEGATIVE (NEGATIVE)
== END 2018-03-14 08:08 | disposition home or self-care (01) ==
LOC: EMS 02:31
DX: F20.0 Paranoid schizophrenia (principal); F17.210 Nicotine dependence, cigarettes, uncomplicated; Z59.0 Homelessness; Z88.8 Allergy status to other drugs, medicaments and biological substances
CPT/HCPCS: 36415; 80053; 80307; 85025; 99284; G0480

== ENCOUNTER 2018-03-15 22:42 | Emergency (ER) | payer MEDICARE, MEDICAID ==
[~2018-03-15] VITALS: Ht 177.8 cm; Wt 64.0 kg
[~2018-03-15 22:42] MED LIST changes: -DIVA500T52 PO; +LORA1TAB3 PO; -MULT-1239 PO; +PALI9TAB IM; -ZIPR60CA2 PO
[2018-03-16 00:01] LABS: BASOPHILS % (AUTO) 1.1 % (0.0-2.0); EOSINOPHILS % (AUTO) 2.8 % (1.0-6.0); HEMATOCRIT 39.1 % (41-53); HEMOGLOBIN 13.1 g/dL (13.5-17.5); LYMPHOCYTES # (AUTO) 2.4 K/uL (1.0-4.8); LYMPHOCYTES % (AUTO) 21.6 % (22.0-44.0); MEAN CORPUSCULAR HEMOGLOBIN 28.8 pg (26.0-34.0); MEAN CORPUSCULAR HGB CONC 33.4 G/dL (31.0-37.0); MEAN CORPUSCULAR VOLUME 86 fL (80-100); MONOCYTES # (AUTO) 0.8 K/uL (0.1-1.0); MONOCYTES % (AUTO) 7.2 % (2.0-9.0); NEUTROPHILS # (AUTO) 7.4 K/uL (1.8-7.7); NEUTROPHILS % (AUTO) 67.3 % (40.0-70.0); PLATELET COUNT (AUTO) 275 K/uL (150-450); RED BLOOD CELL COUNT(AUTO) 4.54 MIL/uL (4.50-5.90); RED CELL DISTRIBUTION WIDTH 16.8 % (11.5-14.5)
[2018-03-16 00:20] LABS: ANION GAP 5 mmol/L (8-16); CALCIUM, TOTAL 8.8 mg/dL (8.8-10.5); CARBON DIOXIDE 31 mmol/L (22-29); CHLORIDE 101 mmol/L (98-107); CREATININE 0.81 mg/dL (0.60-1.30); GLOMERULAR FILTR. RATE CALC > 60 mL/min (>60); GLUCOSE,RANDOM 96 mg/dL (70-110); POTASSIUM 4.2 mmol/L (3.5-5.1); SODIUM SERUM 137 mmol/L (136-145); UREA NITROGEN, BLOOD 7 mg/dL (7-18)
[2018-03-16 00:25] LABS: ALANINE AMINOTRANSFERASE 49 U/L (12-78); ALBUMIN 3.6 g/dL (3.4-5.0); ALKALINE PHOSPHATASE 74 U/L (46-116); ASPARTATE AMINOTRANSFERASE 33 U/L (15-37); BILIRUBIN,TOTAL 0.5 mg/dL (0.1-1.0)
[2018-03-16 02:04] VITALS: BP 128/77
== END 2018-03-16 02:47 | disposition home or self-care (01) ==
LOC: EMS 22:43
DX: F32.9 Major depressive disorder, single episode, unspecified (principal); R45.851 Suicidal ideations; F20.9 Schizophrenia, unspecified; F17.210 Nicotine dependence, cigarettes, uncomplicated; Z59.0 Homelessness; Z88.8 Allergy status to other drugs, medicaments and biological substances
CPT/HCPCS: 36415; 80053; 85025; 99284; G0480

== ENCOUNTER 2018-03-21 00:18 | Inpatient (IN) | payer MEDICARE, MEDICAID ==
[~2018-03-21] VITALS: Ht 177.8 cm; Wt 60.3 kg
[2018-03-21] MEDS ORDERED: LORazepam 2 MG TABLET PO PRN (10:00)
[2018-03-21 10:13] VITALS: BP 117/63
[2018-03-21] MEDS ORDERED: SERT50TA12 PO (10:18)
[2018-03-21] MEDS ORDERED: PALI234D IM (11:19)
[2018-03-21 12:49] VITALS: BP 159/75
[2018-03-21] MEDS ORDERED: PNEUMOCOCCAL VACCINE POLYVALENT 0.5 ML VIAL [PPSV23] IM ONE (15:15)
[2018-03-21 16:00] VITALS: BP 112/66
[2018-03-21] MEDS: SERTRALINE HCL 50 MG TABLET PO SCH (17:05)
[2018-03-21] MEDS: LORazepam 1 MG TABLET PO PRN (17:06)
[2018-03-21] MEDS ORDERED: MAGNESIUM HYDROXIDE SUSPENSION 30 ML UDCUP PO PRN (18:45)
[2018-03-21] MEDS ORDERED: BENZOCAINE/MENTHOL LOZENGE MM PRN (18:45)
[2018-03-21] MEDS ORDERED: PETROLATUM,WHITE 71 GM JELLY TP PRN (18:45)
[2018-03-21] MEDS ORDERED: BACITRACIN 28.4 GM OINTMENT TP PRN (18:45)
[2018-03-21] MEDS ORDERED: IBUPROFEN 600 MG TABLET PO PRN (18:45)
[2018-03-21] MEDS ORDERED: ACETAMINOPHEN 325 MG TABLET PO PRN (18:45)
[2018-03-21] MEDS ORDERED: LOPERAMIDE HCL 2 MG CAPSULE PO PRN (18:45)
[2018-03-21] MEDS ORDERED: MAG HYDROX/AL HYDROX/SIMETH ES 30 ML SUSPENSION UDCUP PO PRN (18:45)
[2018-03-21] MEDS ORDERED: CloNIDine HCL 0.1 MG TABLET PO PRN (18:45)
[2018-03-21] MEDS ORDERED: ONDANSETRON HCL 4 MG TABLET PO PRN (18:45)
[2018-03-21] MEDS ORDERED: ALBUTEROL SULFATE HFA 90 MCG/PUFF 8 GM INHALER IH PRN (18:45)
[2018-03-21] MEDS: DIVALPROEX SODIUM 500 MG ER TABLET PO SCH (21:29)
[2018-03-21] MEDS: MIRTAZAPINE 15 MG TABLET PO SCH (21:29)
[2018-03-21] MEDS: RisperiDONE 1 MG TABLET PO SCH (21:29)
[2018-03-21] MEDS: ZOLPIDEM TARTRATE 10 MG TABLET PO PRN (21:29)
[2018-03-22 07:19] VITALS: BP 125/70
[2018-03-22 08:09] VITALS: BP 127/72
[2018-03-22 08:30] LABS: BASOPHILS % (AUTO) 0.7 % (0.0-2.0); EOSINOPHILS % (AUTO) 3.9 % (1.0-6.0); LYMPHOCYTES # (AUTO) 2.6 K/uL (1.0-4.8); LYMPHOCYTES % (AUTO) 27.2 % (22.0-44.0); MEAN CORPUSCULAR HEMOGLOBIN 28.7 pg (26.0-34.0); MEAN CORPUSCULAR HGB CONC 33.3 G/dL (31.0-37.0); MEAN CORPUSCULAR VOLUME 86 fL (80-100); MONOCYTES # (AUTO) 0.7 K/uL (0.1-1.0); MONOCYTES % (AUTO) 7.4 % (2.0-9.0); NEUTROPHILS # (AUTO) 5.8 K/uL (1.8-7.7); NEUTROPHILS % (AUTO) 60.8 % (40.0-70.0); PLATELET COUNT (AUTO) 366 K/uL (150-450); RED BLOOD CELL COUNT(AUTO) 4.86 MIL/uL (4.50-5.90)
[2018-03-22] MEDS: OMEPRAZOLE 20 MG CAPSULE PO SCH (08:43)
[2018-03-22] MEDS: DOCUSATE SODIUM 100 MG CAPSULE PO SCH (08:43)
[2018-03-22] MEDS: SERTRALINE HCL 50 MG TABLET PO SCH (08:43)
[2018-03-22] MEDS: BACITRACIN 28.4 GM OINTMENT TP SCH ×2 (08:44→17:21)
[2018-03-22 09:09] LABS: ALANINE AMINOTRANSFERASE 33 U/L (12-78); ALBUMIN 3.3 g/dL (3.4-5.0); ALKALINE PHOSPHATASE 67 U/L (46-116); ANION GAP 6 mmol/L (8-16); ASPARTATE AMINOTRANSFERASE 20 U/L (15-37); BILIRUBIN,TOTAL 0.4 mg/dL (0.1-1.0); CALCIUM, TOTAL 8.3 mg/dL (8.8-10.5); CARBON DIOXIDE 31 mmol/L (22-29); CHLORIDE 106 mmol/L (98-107); CHOL/HDL RATIO 2.8 (4.2-7.3); CHOLESTEROL 133 mg/dL (131-200); CREATININE 0.74 mg/dL (0.60-1.30); GLOMERULAR FILTR. RATE CALC > 60 mL/min (>60); GLUCOSE,RANDOM 90 mg/dL (70-110); HDL CHOLESTEROL 48 mg/dL (40-60); LDL CHOL (CALC.) 72 mg/dL (0-130); POTASSIUM 3.8 mmol/L (3.5-5.1); SODIUM SERUM 143 mmol/L (136-145); THYROID STIMULATING HORMONE 0.73 uIU/mL (0.36-3.74); TOTAL PROTEIN, SERUM 6.9 g/dL (6.4-8.2); TRIGLYCERIDES 64 mg/dL (15-150); UREA NITROGEN, BLOOD 14 mg/dL (7-18)
[2018-03-22] MEDS: LORazepam 1 MG TABLET PO PRN (12:42)
[2018-03-22 16:00] VITALS: BP 117/73
[2018-03-22] MEDS: QUEtiapine FUMARATE 100 MG TABLET PO PRN (17:20)
[2018-03-22] MEDS: DIVALPROEX SODIUM 500 MG ER TABLET PO SCH (20:37)
[2018-03-22] MEDS: RisperiDONE 1 MG TABLET PO SCH (20:37)
[2018-03-22] MEDS: MIRTAZAPINE 15 MG TABLET PO SCH (20:37)
[2018-03-23 06:52] VITALS: BP 115/88
[2018-03-23 08:09] VITALS: BP 116/61
[2018-03-23] MEDS: DOCUSATE SODIUM 100 MG CAPSULE PO SCH (09:43)
[2018-03-23] MEDS: BACITRACIN 28.4 GM OINTMENT TP SCH ×2 (09:43→16:10)
[2018-03-23] MEDS: OMEPRAZOLE 20 MG CAPSULE PO SCH (09:43)
[2018-03-23] MEDS: SERTRALINE HCL 50 MG TABLET PO SCH (09:43)
[2018-03-23] MEDS: LORazepam 1 MG TABLET PO PRN ×3 (09:43→21:22)
[2018-03-23 16:00] VITALS: BP 115/77
[2018-03-23] MEDS: QUEtiapine FUMARATE 100 MG TABLET PO PRN (16:10)
[2018-03-23] MEDS: RisperiDONE 1 MG TABLET PO SCH (21:21)
[2018-03-23] MEDS: DIVALPROEX SODIUM 500 MG ER TABLET PO SCH (21:21)
[2018-03-23] MEDS: ZOLPIDEM TARTRATE 10 MG TABLET PO PRN (21:22)
[2018-03-23] MEDS: MIRTAZAPINE 15 MG TABLET PO SCH (21:22)
[2018-03-24 08:14] VITALS: BP 111/62
[2018-03-24] MEDS: OMEPRAZOLE 20 MG CAPSULE PO SCH (09:32)
[2018-03-24] MEDS: DOCUSATE SODIUM 100 MG CAPSULE PO SCH (09:32)
[2018-03-24] MEDS: SERTRALINE HCL 50 MG TABLET PO SCH (09:32)
[2018-03-24] MEDS: BACITRACIN 28.4 GM OINTMENT TP SCH ×2 (09:32→16:15)
[2018-03-24 16:00] VITALS: BP 112/86
[2018-03-24] MEDS: LORazepam 1 MG TABLET PO PRN (16:15)
[2018-03-24] MEDS: QUEtiapine FUMARATE 100 MG TABLET PO PRN (16:15)
[2018-03-24] MEDS ORDERED: HALOPERIDOL LACTATE 5 MG/ML VIAL IM ONE (19:00)
[2018-03-24] MEDS ORDERED: LORazepam 2 MG/ML VIAL IM ONE (19:00)
[2018-03-24] MEDS ORDERED: DiphenhydrAMINE HCL 50 MG/ML VIAL IM ONE (19:00)
[2018-03-24] MEDS: MIRTAZAPINE 15 MG TABLET PO SCH (21:16)
[2018-03-24] MEDS: ZOLPIDEM TARTRATE 10 MG TABLET PO PRN (21:16)
[2018-03-24] MEDS: DIVALPROEX SODIUM 500 MG ER TABLET PO SCH (21:16)
[2018-03-24] MEDS: RisperiDONE 2 MG TABLET PO SCH (21:19)
[2018-03-25 04:37] VITALS: BP 137/74
[2018-03-25 08:46] VITALS: BP 107/61
[2018-03-25] MEDS: BACITRACIN 28.4 GM OINTMENT TP SCH ×2 (11:02→17:14)
[2018-03-25] MEDS: LORazepam 1 MG TABLET PO PRN (11:03)
[2018-03-25] MEDS: DOCUSATE SODIUM 100 MG CAPSULE PO SCH (11:03)
[2018-03-25] MEDS: RisperiDONE 1 MG TABLET PO SCH (11:03)
[2018-03-25] MEDS: OMEPRAZOLE 20 MG CAPSULE PO SCH (11:03)
[2018-03-25] MEDS: QUEtiapine FUMARATE 100 MG TABLET PO PRN (11:04)
[2018-03-25 16:00] VITALS: BP 107/65
[2018-03-25] MEDS: RisperiDONE 2 MG TABLET PO SCH (20:19)
[2018-03-25] MEDS: DIVALPROEX SODIUM 500 MG ER TABLET PO SCH (20:19)
[2018-03-25] MEDS: MIRTAZAPINE 15 MG TABLET PO SCH (20:19)
[2018-03-26 06:13] VITALS: BP 106/72
[2018-03-26 08:29] VITALS: BP 98/61
[2018-03-26] MEDS: OMEPRAZOLE 20 MG CAPSULE PO SCH (08:42)
[2018-03-26] MEDS: DOCUSATE SODIUM 100 MG CAPSULE PO SCH (08:42)
[2018-03-26] MEDS: LORazepam 1 MG TABLET PO PRN ×3 (08:43→20:35)
[2018-03-26] MEDS: RisperiDONE 1 MG TABLET PO SCH (08:43)
[2018-03-26] MEDS: BACITRACIN 28.4 GM OINTMENT TP SCH ×2 (08:43→16:37)
[2018-03-26] MEDS: MULTIVITAMINS WITH MINERALS, THERAPEUTIC TABLET PO SCH (08:43)
[2018-03-26] MEDS ORDERED: MAGNESIUM SULFATE 454 GM BOX TP SCH (15:00)
[2018-03-26 16:00] VITALS: BP 108/66
[2018-03-26] MEDS: MAGNESIUM SULFATE 454 GM BOX TP SCH (16:33)
[2018-03-26] MEDS: QUEtiapine FUMARATE 100 MG TABLET PO PRN (16:34)
[2018-03-26] MEDS: MIRTAZAPINE 15 MG TABLET PO SCH (20:34)
[2018-03-26] MEDS: DIVALPROEX SODIUM 500 MG ER TABLET PO SCH (20:34)
[2018-03-26] MEDS: RisperiDONE 2 MG TABLET PO SCH (20:34)
[2018-03-26] MEDS: ZOLPIDEM TARTRATE 10 MG TABLET PO PRN (20:35)
[2018-03-27 08:07] VITALS: BP 113/74
[2018-03-27] MEDS: OMEPRAZOLE 20 MG CAPSULE PO SCH (08:54)
[2018-03-27] MEDS: MULTIVITAMINS WITH MINERALS, THERAPEUTIC TABLET PO SCH (08:54)
[2018-03-27] MEDS: DOCUSATE SODIUM 100 MG CAPSULE PO SCH (08:54)
[2018-03-27] MEDS: RisperiDONE 1 MG TABLET PO SCH (08:54)
[2018-03-27] MEDS: BACITRACIN 28.4 GM OINTMENT TP SCH ×2 (08:56→16:08)
[2018-03-27] MEDS: MAGNESIUM SULFATE 454 GM BOX TP SCH (10:04)
[2018-03-27] MEDS: LORazepam 1 MG TABLET PO PRN (10:32)
[2018-03-27 17:53] VITALS: BP 128/80
[2018-03-27] MEDS: MIRTAZAPINE 15 MG TABLET PO SCH (20:24)
[2018-03-27] MEDS: DIVALPROEX SODIUM 500 MG ER TABLET PO SCH (20:24)
[2018-03-27] MEDS: RisperiDONE 2 MG TABLET PO SCH (20:24)
[2018-03-28 06:29] VITALS: BP 115/74
[2018-03-28 08:06] VITALS: BP 126/82
[2018-03-28] MEDS: DOCUSATE SODIUM 100 MG CAPSULE PO SCH (08:53)
[2018-03-28] MEDS: MULTIVITAMINS WITH MINERALS, THERAPEUTIC TABLET PO SCH (08:53)
[2018-03-28] MEDS: OMEPRAZOLE 20 MG CAPSULE PO SCH (08:53)
[2018-03-28] MEDS: RisperiDONE 1 MG TABLET PO SCH (08:53)
[2018-03-28] MEDS: MAGNESIUM SULFATE 454 GM BOX TP SCH (09:00)
[2018-03-28] MEDS: BACITRACIN 28.4 GM OINTMENT TP SCH ×2 (10:01→16:19)
[2018-03-28 16:00] VITALS: BP 142/85
[2018-03-28] MEDS: QUEtiapine FUMARATE 100 MG TABLET PO PRN (16:18)
[2018-03-28] MEDS: LORazepam 1 MG TABLET PO PRN (16:18)
[2018-03-28] MEDS: MIRTAZAPINE 15 MG TABLET PO SCH (21:09)
[2018-03-28] MEDS: ZOLPIDEM TARTRATE 10 MG TABLET PO PRN (21:09)
[2018-03-28] MEDS: RisperiDONE 2 MG TABLET PO SCH (21:09)
[2018-03-28] MEDS: DIVALPROEX SODIUM 500 MG ER TABLET PO SCH (21:09)
[2018-03-29 02:40] VITALS: BP_SYST 106; BP_SYST 133; BP_DIAS 73; BP_DIAS 77
[2018-03-29 08:35] VITALS: BP 114/68
[2018-03-29] MEDS: MULTIVITAMINS WITH MINERALS, THERAPEUTIC TABLET PO SCH (09:40)
[2018-03-29] MEDS: DOCUSATE SODIUM 100 MG CAPSULE PO SCH (09:41)
[2018-03-29] MEDS: OMEPRAZOLE 20 MG CAPSULE PO SCH (09:41)
[2018-03-29] MEDS: MAGNESIUM SULFATE 454 GM BOX TP SCH (09:41)
[2018-03-29] MEDS: RisperiDONE 1 MG TABLET PO SCH (09:41)
[2018-03-29] MEDS: BACITRACIN 28.4 GM OINTMENT TP SCH (09:41)
[2018-03-29] MEDS ORDERED: DIVA-78 PO (10:29)
[2018-03-29] MEDS ORDERED: RISP2 PO (10:30)
[2018-03-29] MEDS ORDERED: RISP1 PO (10:30)
[2018-03-29] MEDS ORDERED: MIRT15 PO (10:30)
== END 2018-03-29 13:15 | disposition home or self-care (01) | DRG 885 ==
LOC: B2X 10:38 → B3A 10:38 → EDSTATUS 11:39
PROVIDERS: ADMIT Psychiatry & Neurology Psychiatry; ATTEND Psychiatry & Neurology Psychiatry
DX: F20.0 Paranoid schizophrenia (principal); R45.851 Suicidal ideations; E44.0 Moderate protein-calorie malnutrition; Z68.1 Body mass index [BMI] 19.9 or less, adult; J44.9 Chronic obstructive pulmonary disease, unspecified; K59.00 Constipation, unspecified; K21.9 Gastro-esophageal reflux disease without esophagitis; E55.9 Vitamin D deficiency, unspecified; G47.00 Insomnia, unspecified; J30.9 Allergic rhinitis, unspecified; I10 Essential (primary) hypertension; R45.850 Homicidal ideations; H53.009 Unspecified amblyopia, unspecified eye; Z91.19 Patient's noncompliance with other medical treatment and regimen; Z72.0 Tobacco use; Z72.89 Other problems related to lifestyle; Z59.0 Homelessness; Z79.899 Other long term (current) drug therapy; Z91.14 Patient's other noncompliance with medication regimen; Z28.21 Immunization not carried out because of patient refusal; Z71.6 Tobacco abuse counseling
CPT/HCPCS: 84439; 84443; J1200; J1630; J2060

== ENCOUNTER 2018-06-19 07:48 | Inpatient (IN) | payer MEDICARE, MEDICAID ==
[~2018-06-19] VITALS: Ht 170.2 cm; Wt 61.1 kg
[~2018-06-19 07:48] MED LIST changes: +CHOL100034 PO; +DIVA-78 PO; -LORA1TAB3 PO; +MIRT15 PO; -PALI9TAB IM; +RISP2 PO
[2018-06-19 08:11] LABS: BASOPHILS % (AUTO) 1.3 % (0.0-2.0); EOSINOPHILS % (AUTO) 2.3 % (1.0-6.0); LYMPHOCYTES # (AUTO) 1.8 K/uL (1.0-4.8); LYMPHOCYTES % (AUTO) 24.2 % (22.0-44.0); MEAN CORPUSCULAR HEMOGLOBIN 27.1 pg (26.0-34.0); MEAN CORPUSCULAR HGB CONC 33.3 G/dL (31.0-37.0); MEAN CORPUSCULAR VOLUME 81 fL (80-100); MONOCYTES # (AUTO) 0.8 K/uL (0.1-1.0); MONOCYTES % (AUTO) 10.1 % (2.0-9.0); NEUTROPHILS # (AUTO) 4.7 K/uL (1.8-7.7); NEUTROPHILS % (AUTO) 62.1 % (40.0-70.0); PLATELET COUNT (AUTO) 276 K/uL (150-450); RED BLOOD CELL COUNT(AUTO) 5.16 MIL/uL (4.50-5.90); RED CELL DISTRIBUTION WIDTH 14.9 % (11.5-14.5)
[2018-06-19 08:22] LABS: ANION GAP 9 mmol/L (8-16); CALCIUM, TOTAL 8.9 mg/dL (8.8-10.5); CARBON DIOXIDE 27 mmol/L (22-29); CHLORIDE 103 mmol/L (98-107); CREATININE 0.74 mg/dL (0.60-1.30); GLOMERULAR FILTR. RATE CALC > 60 mL/min (>60); GLUCOSE,RANDOM 101 mg/dL (70-110); POTASSIUM 3.9 mmol/L (3.5-5.1); SODIUM SERUM 139 mmol/L (136-145); UREA NITROGEN, BLOOD 8 mg/dL (7-18)
[2018-06-19 08:27] LABS: ALANINE AMINOTRANSFERASE 22 U/L (12-78); ALBUMIN 3.8 g/dL (3.4-5.0); ALKALINE PHOSPHATASE 77 U/L (46-116); ASPARTATE AMINOTRANSFERASE 17 U/L (15-37); BILIRUBIN,TOTAL 0.5 mg/dL (0.1-1.0); TOTAL PROTEIN, SERUM 7.6 g/dL (6.4-8.2)
[2018-06-19] MEDS ORDERED: LORazepam 2 MG TABLET PO ONE (09:15)
[2018-06-19] MEDS ORDERED: HALOPERIDOL 5 MG TABLET PO ONE (09:15)
[2018-06-19] MEDS ORDERED: HALOPERIDOL 5 MG TABLET PO PRN (09:30)
[2018-06-19] MEDS ORDERED: ZOLPIDEM TARTRATE 10 MG TABLET PO PRN (09:30)
[2018-06-19] MEDS ORDERED: LORazepam 2 MG TABLET PO PRN (09:30)
[2018-06-19] MEDS ORDERED: PNEUMOCOCCAL VACCINE POLYVALENT 0.5 ML VIAL [PPSV23] IM ONE (13:15)
[2018-06-19 13:32] VITALS: BP 132/73
[2018-06-19] MEDS ORDERED: CloNIDine HCL 0.1 MG TABLET PO PRN (14:00)
[2018-06-19] MEDS ORDERED: MAGNESIUM HYDROXIDE SUSPENSION 30 ML UDCUP PO PRN (14:00)
[2018-06-19] MEDS ORDERED: LOPERAMIDE HCL 2 MG CAPSULE PO PRN (14:00)
[2018-06-19] MEDS ORDERED: MAG HYDROX/AL HYDROX/SIMETH ES 30 ML SUSPENSION UDCUP PO PRN (14:00)
[2018-06-19] MEDS ORDERED: BENZOCAINE/MENTHOL LOZENGE MM PRN (14:00)
[2018-06-19] MEDS ORDERED: ALBUTEROL SULFATE HFA 90 MCG/PUFF 8 GM INHALER IH PRN (14:00)
[2018-06-19] MEDS ORDERED: BACITRACIN 28.4 GM OINTMENT TP PRN (14:00)
[2018-06-19] MEDS ORDERED: ACETAMINOPHEN 325 MG TABLET PO PRN (14:00)
[2018-06-19] MEDS ORDERED: ONDANSETRON HCL 4 MG TABLET PO PRN (14:00)
[2018-06-19] MEDS ORDERED: PETROLATUM,WHITE 71 GM JELLY TP PRN (14:00)
[2018-06-19] MEDS ORDERED: IBUPROFEN 600 MG TABLET PO PRN (14:00)
[2018-06-19 16:43] VITALS: BP 111/67
[2018-06-19] MEDS ORDERED: SODIUM CHLORIDE 0.65% 44 ML NASAL SPRAY NASAL SCH (17:00)
[2018-06-19] MEDS ORDERED: NEOMYCIN/BACITRACIN/POLYMYXIN B 30 GM OINTMENT TP SCH (17:00)
[2018-06-19] MEDS ORDERED: DIVALPROEX SODIUM 500 MG ER TABLET PO SCH (21:00)
[2018-06-19] MEDS ORDERED: RisperiDONE 2 MG TABLET PO SCH (21:00)
[2018-06-19] MEDS: MIRTAZAPINE 15 MG TABLET PO SCH (21:42)
[2018-06-20] MEDS: MULTIVITAMINS WITH MINERALS, THERAPEUTIC TABLET PO SCH (08:36)
[2018-06-20] MEDS: OMEPRAZOLE 20 MG CAPSULE PO SCH (08:36)
[2018-06-20] MEDS: CHOLECALCIFEROL (VIT D3) 1,000 UNITS TABLET PO SCH (08:36)
[2018-06-20 09:55] VITALS: BP 116/67
[2018-06-20] MEDS: MIRTAZAPINE 15 MG TABLET PO SCH (20:26)
[2018-06-20] MEDS: RisperiDONE 3 MG TABLET PO SCH (20:26)
[2018-06-20] MEDS: DIVALPROEX SODIUM 500 MG ER TABLET PO SCH (20:26)
[2018-06-20 21:45] VITALS: BP 102/57
[2018-06-21] MEDS: MULTIVITAMINS WITH MINERALS, THERAPEUTIC TABLET PO SCH (09:00)
[2018-06-21] MEDS: OMEPRAZOLE 20 MG CAPSULE PO SCH (09:00)
[2018-06-21] MEDS: CHOLECALCIFEROL (VIT D3) 1,000 UNITS TABLET PO SCH (09:00)
[2018-06-21 17:00] VITALS: BP 117/98
[2018-06-21] MEDS: DIVALPROEX SODIUM 500 MG ER TABLET PO SCH (20:11)
[2018-06-21] MEDS: MIRTAZAPINE 15 MG TABLET PO SCH (20:11)
[2018-06-21] MEDS: RisperiDONE 3 MG TABLET PO SCH (20:11)
[2018-06-22] MEDS: OMEPRAZOLE 20 MG CAPSULE PO SCH (09:00)
[2018-06-22] MEDS: MULTIVITAMINS WITH MINERALS, THERAPEUTIC TABLET PO SCH (09:01)
[2018-06-22] MEDS: CHOLECALCIFEROL (VIT D3) 1,000 UNITS TABLET PO SCH (09:03)
[2018-06-22 17:00] VITALS: BP 102/67
[2018-06-22] MEDS: DIVALPROEX SODIUM 500 MG ER TABLET PO SCH (20:41)
[2018-06-22] MEDS: MIRTAZAPINE 15 MG TABLET PO SCH (20:41)
[2018-06-22] MEDS ORDERED: RisperiDONE 4 MG TABLET PO SCH (21:00)
[2018-06-23 08:05] VITALS: BP 111/64
[2018-06-23] MEDS: OMEPRAZOLE 20 MG CAPSULE PO SCH (08:36)
[2018-06-23] MEDS: CHOLECALCIFEROL (VIT D3) 1,000 UNITS TABLET PO SCH (08:36)
[2018-06-23] MEDS: MULTIVITAMINS WITH MINERALS, THERAPEUTIC TABLET PO SCH (08:36)
[2018-06-23 19:44] VITALS: BP 116/72
[2018-06-23] MEDS: DIVALPROEX SODIUM 500 MG ER TABLET PO SCH (20:30)
[2018-06-23] MEDS: MIRTAZAPINE 15 MG TABLET PO SCH (20:30)
[2018-06-23] MEDS: RisperiDONE 2 MG TABLET PO SCH (20:32)
[2018-06-24 08:22] VITALS: BP 109/65
[2018-06-24] MEDS: OMEPRAZOLE 20 MG CAPSULE PO SCH (09:11)
[2018-06-24] MEDS: CHOLECALCIFEROL (VIT D3) 1,000 UNITS TABLET PO SCH (09:11)
[2018-06-24] MEDS: MULTIVITAMINS WITH MINERALS, THERAPEUTIC TABLET PO SCH (09:11)
[2018-06-24] MEDS: MIRTAZAPINE 15 MG TABLET PO SCH (19:57)
[2018-06-24] MEDS: RisperiDONE 2 MG TABLET PO SCH (19:58)
[2018-06-24] MEDS: DIVALPROEX SODIUM 500 MG ER TABLET PO SCH (19:58)
[2018-06-24 20:07] VITALS: BP 94/54
[2018-06-25 08:22] VITALS: BP 105/65
[2018-06-25] MEDS: MULTIVITAMINS WITH MINERALS, THERAPEUTIC TABLET PO SCH (09:00)
[2018-06-25] MEDS: OMEPRAZOLE 20 MG CAPSULE PO SCH (09:00)
[2018-06-25] MEDS: CHOLECALCIFEROL (VIT D3) 1,000 UNITS TABLET PO SCH (09:00)
[2018-06-25 16:30] VITALS: BP 102/56
[2018-06-25] MEDS ORDERED: DiphenhydrAMINE HCL 25 MG CAPSULE PO SCH (21:00)
[2018-06-25] MEDS: MIRTAZAPINE 15 MG TABLET PO SCH (21:03)
[2018-06-25] MEDS: RisperiDONE 2 MG TABLET PO SCH (21:04)
[2018-06-25] MEDS: DIVALPROEX SODIUM 500 MG ER TABLET PO SCH (21:04)
[2018-06-26 09:30] VITALS: BP 92/70
[2018-06-26] MEDS: MULTIVITAMINS WITH MINERALS, THERAPEUTIC TABLET PO SCH (09:40)
[2018-06-26] MEDS: OMEPRAZOLE 20 MG CAPSULE PO SCH (09:40)
[2018-06-26] MEDS: CHOLECALCIFEROL (VIT D3) 1,000 UNITS TABLET PO SCH (09:40)
[2018-06-26 16:00] VITALS: BP 109/61
[2018-06-26] MEDS: DIVALPROEX SODIUM 500 MG ER TABLET PO SCH (20:54)
[2018-06-26] MEDS: DiphenhydrAMINE HCL 50 MG CAPSULE PO SCH (20:54)
[2018-06-26] MEDS: MIRTAZAPINE 15 MG TABLET PO SCH (20:55)
[2018-06-26] MEDS: RisperiDONE 2 MG TABLET PO SCH (20:56)
[2018-06-27] MEDS: OMEPRAZOLE 20 MG CAPSULE PO SCH (08:45)
[2018-06-27] MEDS: CHOLECALCIFEROL (VIT D3) 1,000 UNITS TABLET PO SCH (08:45)
[2018-06-27] MEDS: MULTIVITAMINS WITH MINERALS, THERAPEUTIC TABLET PO SCH (08:45)
[2018-06-27 09:38] VITALS: BP 102/54
[2018-06-27 17:00] VITALS: BP 128/60
[2018-06-27] MEDS: DiphenhydrAMINE HCL 50 MG CAPSULE PO SCH (21:23)
[2018-06-27] MEDS: MIRTAZAPINE 15 MG TABLET PO SCH (21:23)
[2018-06-27] MEDS: DIVALPROEX SODIUM 500 MG ER TABLET PO SCH (21:25)
[2018-06-27] MEDS: RisperiDONE 3 MG TABLET PO SCH (21:25)
[2018-06-28 08:42] VITALS: BP 105/69
[2018-06-28] MEDS ORDERED: MULTIVITAMINS WITH MINERALS, THERAPEUTIC TABLET PO SCH (09:00)
[2018-06-28] MEDS: OMEPRAZOLE 20 MG CAPSULE PO SCH (09:05)
[2018-06-28] MEDS: CHOLECALCIFEROL (VIT D3) 1,000 UNITS TABLET PO SCH (09:05)
[2018-06-28] MEDS: MULTIVITAMINS WITH MINERALS, THERAPEUTIC TABLET PO SCH (09:05)
[2018-06-28 18:27] VITALS: BP 112/69
[2018-06-28] MEDS: RisperiDONE 3 MG TABLET PO SCH (20:19)
[2018-06-28] MEDS: DiphenhydrAMINE HCL 50 MG CAPSULE PO SCH (20:19)
[2018-06-28] MEDS: MIRTAZAPINE 15 MG TABLET PO SCH (20:19)
[2018-06-28] MEDS: DIVALPROEX SODIUM 500 MG ER TABLET PO SCH (20:20)
[2018-06-29] MEDS: OMEPRAZOLE 20 MG CAPSULE PO SCH (09:32)
[2018-06-29] MEDS: CHOLECALCIFEROL (VIT D3) 1,000 UNITS TABLET PO SCH (09:32)
[2018-06-29] MEDS: MULTIVITAMINS WITH MINERALS, THERAPEUTIC TABLET PO SCH (09:32)
[2018-06-29 17:23] VITALS: BP 108/64
[2018-06-29] MEDS: RisperiDONE 3 MG TABLET PO SCH (20:39)
[2018-06-29] MEDS: DIVALPROEX SODIUM 500 MG ER TABLET PO SCH (20:39)
[2018-06-29] MEDS: DiphenhydrAMINE HCL 50 MG CAPSULE PO SCH (20:39)
[2018-06-29] MEDS: MIRTAZAPINE 15 MG TABLET PO SCH (20:39)
[2018-06-30] MEDS: OMEPRAZOLE 20 MG CAPSULE PO SCH (08:07)
[2018-06-30] MEDS: MULTIVITAMINS WITH MINERALS, THERAPEUTIC TABLET PO SCH (08:07)
[2018-06-30] MEDS: CHOLECALCIFEROL (VIT D3) 1,000 UNITS TABLET PO SCH (08:07)
[2018-06-30 17:53] VITALS: BP 94/56
[2018-06-30] MEDS: DIVALPROEX SODIUM 500 MG ER TABLET PO SCH (20:44)
[2018-06-30] MEDS: RisperiDONE 3 MG TABLET PO SCH (20:44)
[2018-06-30] MEDS: MIRTAZAPINE 15 MG TABLET PO SCH (20:44)
[2018-06-30] MEDS: DiphenhydrAMINE HCL 50 MG CAPSULE PO SCH (20:48)
[2018-07-01] MEDS: CHOLECALCIFEROL (VIT D3) 1,000 UNITS TABLET PO SCH (08:33)
[2018-07-01] MEDS: OMEPRAZOLE 20 MG CAPSULE PO SCH (08:33)
[2018-07-01] MEDS: MULTIVITAMINS WITH MINERALS, THERAPEUTIC TABLET PO SCH (08:33)
[2018-07-01 18:30] VITALS: BP 103/76
[2018-07-01] MEDS: DiphenhydrAMINE HCL 50 MG CAPSULE PO SCH (21:00)
[2018-07-01] MEDS: DIVALPROEX SODIUM 500 MG ER TABLET PO SCH (22:01)
[2018-07-01] MEDS: MIRTAZAPINE 15 MG TABLET PO SCH (22:01)
[2018-07-01] MEDS: RisperiDONE 3 MG TABLET PO SCH (22:01)
[2018-07-02 08:04] VITALS: BP 110/76
[2018-07-02] MEDS: CHOLECALCIFEROL (VIT D3) 1,000 UNITS TABLET PO SCH (08:07)
[2018-07-02] MEDS: OMEPRAZOLE 20 MG CAPSULE PO SCH (08:07)
[2018-07-02] MEDS: MULTIVITAMINS WITH MINERALS, THERAPEUTIC TABLET PO SCH (08:07)
[2018-07-02 18:52] VITALS: BP 100/61
[2018-07-02] MEDS: DIVALPROEX SODIUM 500 MG ER TABLET PO SCH (20:32)
[2018-07-02] MEDS: MIRTAZAPINE 15 MG TABLET PO SCH (20:32)
[2018-07-02] MEDS: RisperiDONE 3 MG TABLET PO SCH (20:32)
[2018-07-02] MEDS: DiphenhydrAMINE HCL 50 MG CAPSULE PO SCH (20:45)
[2018-07-03] MEDS: CHOLECALCIFEROL (VIT D3) 1,000 UNITS TABLET PO SCH (09:05)
[2018-07-03] MEDS: OMEPRAZOLE 20 MG CAPSULE PO SCH (09:05)
[2018-07-03] MEDS: MULTIVITAMINS WITH MINERALS, THERAPEUTIC TABLET PO SCH (09:05)
[2018-07-03 09:48] VITALS: BP 116/71
[2018-07-03 16:38] VITALS: BP 99/76
[2018-07-03] MEDS: DIVALPROEX SODIUM 500 MG ER TABLET PO SCH (20:12)
[2018-07-03] MEDS: DiphenhydrAMINE HCL 50 MG CAPSULE PO SCH ×2 (20:12→20:17)
[2018-07-03] MEDS: RisperiDONE 3 MG TABLET PO SCH (20:12)
[2018-07-03] MEDS: MIRTAZAPINE 15 MG TABLET PO SCH (20:12)
[2018-07-04] MEDS: CHOLECALCIFEROL (VIT D3) 1,000 UNITS TABLET PO SCH (08:41)
[2018-07-04] MEDS: OMEPRAZOLE 20 MG CAPSULE PO SCH (08:41)
[2018-07-04] MEDS: MULTIVITAMINS WITH MINERALS, THERAPEUTIC TABLET PO SCH (08:41)
[2018-07-04 10:27] VITALS: BP 101/66
[2018-07-04 19:50] VITALS: BP 104/78
[2018-07-04] MEDS: MIRTAZAPINE 15 MG TABLET PO SCH (20:23)
[2018-07-04] MEDS: DIVALPROEX SODIUM 500 MG ER TABLET PO SCH (20:24)
[2018-07-04] MEDS: DiphenhydrAMINE HCL 50 MG CAPSULE PO SCH (20:26)
[2018-07-04] MEDS: RisperiDONE 3 MG TABLET PO SCH (20:30)
[2018-07-05] MEDS: OMEPRAZOLE 20 MG CAPSULE PO SCH (09:05)
[2018-07-05] MEDS: MULTIVITAMINS WITH MINERALS, THERAPEUTIC TABLET PO SCH (09:05)
[2018-07-05] MEDS: CHOLECALCIFEROL (VIT D3) 1,000 UNITS TABLET PO SCH (09:05)
[2018-07-05 09:29] VITALS: BP 114/66
[2018-07-05] MEDS: MIRTAZAPINE 15 MG TABLET PO SCH (20:43)
[2018-07-05] MEDS: RisperiDONE 3 MG TABLET PO SCH (20:43)
[2018-07-05] MEDS: DIVALPROEX SODIUM 500 MG ER TABLET PO SCH (20:43)
[2018-07-05] MEDS: DiphenhydrAMINE HCL 50 MG CAPSULE PO SCH (20:46)
[2018-07-05 22:23] VITALS: BP 116/72
[2018-07-06] MEDS: OMEPRAZOLE 20 MG CAPSULE PO SCH (08:25)
[2018-07-06] MEDS: MULTIVITAMINS WITH MINERALS, THERAPEUTIC TABLET PO SCH (08:25)
[2018-07-06] MEDS: CHOLECALCIFEROL (VIT D3) 1,000 UNITS TABLET PO SCH (08:25)
[2018-07-06] MEDS ORDERED: MULT-248 PO (08:54)
[2018-07-06] MEDS ORDERED: DIPH50 PO (08:54)
[2018-07-06] MEDS ORDERED: OMEP20 PO (08:54)
[2018-07-06 09:45] VITALS: BP 103/64
== END 2018-07-06 15:20 | disposition home or self-care (01) | DRG 885 ==
LOC: EMS 07:49 → 3EX 10:29
PROVIDERS: ADMIT Psychiatry & Neurology Psychiatry; ATTEND Psychiatry & Neurology Psychiatry
DX: F20.0 Paranoid schizophrenia (principal); J44.9 Chronic obstructive pulmonary disease, unspecified; K21.9 Gastro-esophageal reflux disease without esophagitis; E55.9 Vitamin D deficiency, unspecified; F17.210 Nicotine dependence, cigarettes, uncomplicated; F41.9 Anxiety disorder, unspecified; G47.00 Insomnia, unspecified; S00.01XA Abrasion of scalp, initial encounter; K59.00 Constipation, unspecified; Z91.19 Patient's noncompliance with other medical treatment and regimen; X58.XXXA Exposure to other specified factors, initial encounter; Z59.0 Homelessness; Z88.8 Allergy status to other drugs, medicaments and biological substances; Z79.899 Other long term (current) drug therapy; Z71.6 Tobacco abuse counseling; Y93.9 Activity, unspecified; Y92.89 Other specified places as the place of occurrence of the external cause; Y99.8 Other external cause status; Z28.21 Immunization not carried out because of patient refusal
CPT/HCPCS: 87081; 99291; G0378; G0480

== ENCOUNTER 2018-08-06 11:49 | Inpatient (IN) | payer MEDICARE, MEDICAID ==
[~2018-08-06] VITALS: Ht 177.8 cm; Wt 58.5 kg
[~2018-08-06 11:49] MED LIST changes: +DIPH50 PO; +MULT-248 PO; +OMEP20 PO
[2018-08-06] MEDS ORDERED: QUET100T PO (12:20)
[2018-08-06] MEDS ORDERED: VALP250 PO (12:20)
[2018-08-06] MEDS ORDERED: RISP3 PO (12:24)
[2018-08-06] MEDS ORDERED: HALOPERIDOL LACTATE 5 MG/ML VIAL IM ONE (12:30)
[2018-08-06] MEDS ORDERED: DiphenhydrAMINE HCL 50 MG/ML VIAL IM ONE (12:30)
[2018-08-06] MEDS ORDERED: LORazepam 2 MG/ML VIAL IM ONE (12:30)
[2018-08-06 13:57] LABS: BASOPHILS % (AUTO) 0.9 % (0.0-2.0); EOSINOPHILS % (AUTO) 0.7 % (1.0-6.0); HEMATOCRIT 38.3 % (41-53); HEMOGLOBIN 12.5 g/dL (13.5-17.5); LYMPHOCYTES # (AUTO) 1.6 K/uL (1.0-4.8); MEAN CORPUSCULAR HEMOGLOBIN 26.6 pg (26.0-34.0); MEAN CORPUSCULAR HGB CONC 32.5 G/dL (31.0-37.0); MEAN CORPUSCULAR VOLUME 82 fL (80-100); MONOCYTES % (AUTO) 8.9 % (2.0-9.0); NEUTROPHILS # (AUTO) 8.4 K/uL (1.8-7.7); NEUTROPHILS % (AUTO) 75.5 % (40.0-70.0); PLATELET COUNT (AUTO) 380 K/uL (150-450); RED BLOOD CELL COUNT(AUTO) 4.69 MIL/uL (4.50-5.90); RED CELL DISTRIBUTION WIDTH 15.3 % (11.5-14.5)
[2018-08-06] MEDS ORDERED: LORazepam 2 MG TABLET PO PRN ×2 (14:15→18:00)
[2018-08-06] MEDS ORDERED: QUEtiapine FUMARATE 100 MG TABLET PO PRN (14:15)
[2018-08-06] MEDS ORDERED: IBUPROFEN 400 MG TABLET PO PRN ×2 (14:15→18:30)
[2018-08-06] MEDS ORDERED: ACETAMINOPHEN 325 MG TABLET PO PRN ×2 (14:15→18:30)
[2018-08-06] MEDS ORDERED: ZOLPIDEM TARTRATE 10 MG TABLET PO PRN ×2 (14:15→18:00)
[2018-08-06 14:34] LABS: ANION GAP 7 mmol/L (8-16); CALCIUM, TOTAL 8.6 mg/dL (8.8-10.5); CARBON DIOXIDE 31 mmol/L (22-29); CHLORIDE 102 mmol/L (98-107); CREATININE 0.81 mg/dL (0.60-1.30); GLOMERULAR FILTR. RATE CALC > 60 mL/min (>60); GLUCOSE,RANDOM 87 mg/dL (70-110); POTASSIUM 4.2 mmol/L (3.5-5.1); SODIUM SERUM 140 mmol/L (136-145); UREA NITROGEN, BLOOD 8 mg/dL (7-18)
[2018-08-06 14:39] LABS: ALANINE AMINOTRANSFERASE 29 U/L (12-78); ALBUMIN 3.2 g/dL (3.4-5.0); ALKALINE PHOSPHATASE 76 U/L (46-116); ASPARTATE AMINOTRANSFERASE 26 U/L (15-37); BILIRUBIN,TOTAL 0.2 mg/dL (0.1-1.0); TOTAL PROTEIN, SERUM 7.3 g/dL (6.4-8.2)
[2018-08-06 14:54] LABS: VALPROIC ACID < 3 mcg/mL (50-100)
[2018-08-06] MEDS ORDERED: BACITRACIN 0.9 GM PACKET OINTMENT TP ONE (15:15)
[2018-08-06 16:41] VITALS: BP 109/82
[2018-08-06] MEDS ORDERED: PNEUMOCOCCAL VACCINE POLYVALENT 0.5 ML VIAL [PPSV23] IM ONE (16:45)
[2018-08-06] MEDS ORDERED: OLANZapine 5 MG RAPDIS TABLET PO PRN (18:00)
[2018-08-06] MEDS ORDERED: ALBUTEROL SULFATE HFA 90 MCG/PUFF 8 GM INHALER IH PRN (18:30)
[2018-08-06] MEDS ORDERED: ZOLPIDEM TARTRATE 5 MG TABLET PO PRN (18:30)
[2018-08-06] MEDS ORDERED: PETROLATUM,WHITE 71 GM JELLY TP PRN (18:30)
[2018-08-06] MEDS ORDERED: GuaiFENesin/D-METHORPHAN [SUGAR-FREE] 200-20MG/10 ML SYRUP UDCUP PO PRN (18:30)
[2018-08-06] MEDS ORDERED: CloNIDine HCL 0.1 MG TABLET PO PRN (18:30)
[2018-08-06] MEDS ORDERED: NICOTINE 14 MG/24 HOUR PATCH TD PRN (18:30)
[2018-08-06] MEDS ORDERED: MAG HYDROX/AL HYDROX/SIMETH ES 30 ML SUSPENSION UDCUP PO PRN (18:30)
[2018-08-06] MEDS ORDERED: ONDANSETRON HCL 4 MG TABLET PO PRN (18:30)
[2018-08-06] MEDS ORDERED: LOPERAMIDE HCL 2 MG CAPSULE PO PRN (18:30)
[2018-08-06] MEDS ORDERED: DOCUSATE SODIUM 100 MG CAPSULE PO PRN (18:30)
[2018-08-06] MEDS ORDERED: MAGNESIUM HYDROXIDE SUSPENSION 30 ML UDCUP PO PRN (18:30)
[2018-08-06] MEDS ORDERED: ChlorproMAZINE HCL 100 MG TABLET PO PRN (18:30)
[2018-08-06] MEDS: MIRTAZAPINE 15 MG TABLET PO SCH (21:00)
[2018-08-06] MEDS: RisperiDONE 3 MG TABLET PO SCH (21:00)
[2018-08-07 06:32] VITALS: BP 101/61
[2018-08-07] MEDS: OMEPRAZOLE 20 MG CAPSULE PO SCH (08:42)
[2018-08-07] MEDS: DIVALPROEX SODIUM 500 MG ER TABLET PO SCH (08:42)
[2018-08-07 09:07] VITALS: BP 90/60
[2018-08-07 16:08] VITALS: BP_SYST 95; BP_SYST 99; BP_DIAS 45; BP_DIAS 59
[2018-08-07] MEDS: RisperiDONE 3 MG TABLET PO SCH (21:06)
[2018-08-07] MEDS: MIRTAZAPINE 15 MG TABLET PO SCH (21:06)
[2018-08-08 05:16] VITALS: BP 106/68
[2018-08-08 08:30] VITALS: BP 106/62
[2018-08-08] MEDS: OMEPRAZOLE 20 MG CAPSULE PO SCH (08:48)
[2018-08-08] MEDS: CHOLECALCIFEROL (VIT D3) 1,000 UNITS TABLET PO SCH (08:48)
[2018-08-08] MEDS: DIVALPROEX SODIUM 500 MG ER TABLET PO SCH (08:48)
[2018-08-08] MEDS: MULTIVITAMINS WITH MINERALS, THERAPEUTIC TABLET PO SCH (08:48)
[2018-08-08 16:00] VITALS: BP 112/72
[2018-08-08] MEDS: BACITRACIN 28.4 GM OINTMENT TP PRN (18:54)
[2018-08-08] MEDS: RisperiDONE 3 MG TABLET PO SCH (20:29)
[2018-08-08] MEDS: MIRTAZAPINE 15 MG TABLET PO SCH (20:29)
[2018-08-09 05:30] VITALS: BP 108/74
[2018-08-09 08:35] VITALS: BP 111/67
[2018-08-09] MEDS: DIVALPROEX SODIUM 500 MG ER TABLET PO SCH ×2 (09:06→20:31)
[2018-08-09] MEDS: OMEPRAZOLE 20 MG CAPSULE PO SCH (09:06)
[2018-08-09] MEDS: MULTIVITAMINS WITH MINERALS, THERAPEUTIC TABLET PO SCH (09:06)
[2018-08-09] MEDS: CHOLECALCIFEROL (VIT D3) 1,000 UNITS TABLET PO SCH (09:06)
[2018-08-09] MEDS: BACITRACIN 28.4 GM OINTMENT TP PRN ×2 (11:03→18:33)
[2018-08-09 16:15] VITALS: BP 116/67
[2018-08-09] MEDS: MIRTAZAPINE 15 MG TABLET PO SCH (20:31)
[2018-08-09] MEDS: RisperiDONE 3 MG TABLET PO SCH (20:31)
[2018-08-10 06:25] VITALS: BP 120/81
[2018-08-10 08:15] VITALS: BP 103/64
[2018-08-10] MEDS: DIVALPROEX SODIUM 500 MG ER TABLET PO SCH ×2 (08:39→20:52)
[2018-08-10] MEDS: CHOLECALCIFEROL (VIT D3) 1,000 UNITS TABLET PO SCH (08:39)
[2018-08-10] MEDS: MULTIVITAMINS WITH MINERALS, THERAPEUTIC TABLET PO SCH (08:39)
[2018-08-10] MEDS: OMEPRAZOLE 20 MG CAPSULE PO SCH (08:39)
[2018-08-10 16:05] VITALS: BP 114/65
[2018-08-10] MEDS: CHOLECALCIFEROL (VIT D3) 400 UNITS TABLET PO SCH (17:00)
[2018-08-10] MEDS: MIRTAZAPINE 15 MG TABLET PO SCH (20:52)
[2018-08-10] MEDS ORDERED: RisperiDONE 4 MG TABLET PO SCH (21:00)
[2018-08-11 06:26] VITALS: BP 110/68
[2018-08-11 08:32] VITALS: BP 100/71
[2018-08-11] MEDS: OMEPRAZOLE 20 MG CAPSULE PO SCH (08:32)
[2018-08-11] MEDS: DIVALPROEX SODIUM 500 MG ER TABLET PO SCH ×2 (08:32→21:03)
[2018-08-11] MEDS: MULTIVITAMINS WITH MINERALS, THERAPEUTIC TABLET PO SCH (08:32)
[2018-08-11] MEDS: CHOLECALCIFEROL (VIT D3) 400 UNITS TABLET PO SCH ×2 (08:33→16:35)
[2018-08-11 17:00] VITALS: BP 107/72
[2018-08-11] MEDS ORDERED: RisperiDONE 2 MG TABLET PO SCH (21:00)
[2018-08-11] MEDS: MIRTAZAPINE 15 MG TABLET PO SCH (21:03)
[2018-08-12 06:29] VITALS: BP 110/68
[2018-08-12 06:53] VITALS: BP 106/64
[2018-08-12] MEDS: MULTIVITAMINS WITH MINERALS, THERAPEUTIC TABLET PO SCH (08:13)
[2018-08-12] MEDS: CHOLECALCIFEROL (VIT D3) 400 UNITS TABLET PO SCH ×2 (08:13→16:30)
[2018-08-12] MEDS: DIVALPROEX SODIUM 500 MG ER TABLET PO SCH (08:13)
[2018-08-12] MEDS: OMEPRAZOLE 20 MG CAPSULE PO SCH (08:13)
[2018-08-12 09:14] VITALS: BP 113/69
[2018-08-12] MEDS ORDERED: NALT50TA PO (12:27)
[2018-08-12] MEDS ORDERED: DIVA500T52 PO (12:27)
[2018-08-12] MEDS ORDERED: MIRT15 PO (12:27)
[2018-08-12] MEDS ORDERED: RISP2 PO (12:27)
[2018-08-12 16:08] VITALS: BP 117/68
[2018-08-12] MEDS ORDERED: OMEP20 PO ×2 (16:24→16:27)
[2018-08-12] MEDS ORDERED: VITAD400 PO (16:25)
== END 2018-08-12 17:50 | disposition home or self-care (01) | DRG 885 ==
LOC: EMS 11:53 → B2X 14:53
PROVIDERS: ADMIT Psychiatry & Neurology Psychiatry; ATTEND Psychiatry & Neurology Psychiatry
DX: F25.0 Schizoaffective disorder, bipolar type (principal); R45.851 Suicidal ideations; F10.10 Alcohol abuse, uncomplicated; E55.9 Vitamin D deficiency, unspecified; D72.829 Elevated white blood cell count, unspecified; F39 Unspecified mood [affective] disorder; J44.9 Chronic obstructive pulmonary disease, unspecified; F17.210 Nicotine dependence, cigarettes, uncomplicated; K21.9 Gastro-esophageal reflux disease without esophagitis; K59.00 Constipation, unspecified; M54.9 Dorsalgia, unspecified; I95.9 Hypotension, unspecified; Z59.0 Homelessness; Z91.19 Patient's noncompliance with other medical treatment and regimen; Z56.0 Unemployment, unspecified; Z71.41 Alcohol abuse counseling and surveillance of alcoholic; Z88.8 Allergy status to other drugs, medicaments and biological substances; Z28.21 Immunization not carried out because of patient refusal
CPT/HCPCS: 87081; 96372; G0480; J1200; J1630; J2060